=== PATIENT | female | born 1990 | race Caucasian/White ===

== ENCOUNTER 2017-05-04 14:19 | Inpatient (IN) | payer BC ==
--- NOTE | 2017-05-04 15:17 | ED ---
General Adult HPI - General Chief complaint: Psychiatric Symptoms Stated complaint: med check Time Seen by Provider: 05/04/17 14:56 Source: patient, RN notes reviewed, old records reviewed Mode of arrival: ambulatory Limitations: no limitations - History of Present Illness Initial comments: This is a 19-year-old female the ER for evaluation of psychiatric disease, patient has known mental illness. Patient is intoxicated from rubbing alcohol. She messaging event having problem with drinking rubbing alcohol. Patient's family is at bedside, patient is suicidal. Patient states she does not to kill herself, she is having delusions, hearing and seeing things - Related Data Home Medications Medication Instructions Recorded Confirmed Gabapentin [Neurontin] 100 mg PO TID 05/04/17 05/04/17 Lurasidone [Latuda] 40 mg PO W/SUPPER 05/04/17 05/04/17 Methocarbamol [Robaxin] 750 mg PO BID 05/04/17 05/04/17 Metoprolol Tartrate [Lopressor] 12.5 mg PO BID 05/04/17 05/04/17 Venlafaxine HCl [Effexor] 75 mg PO DAILY 05/04/17 05/04/17 traZODone HCL 150 mg PO HS 05/04/17 05/04/17 Divalproex ER [Depakote ER] 500 mg PO BID 05/05/17 05/05/17 Allergies Allergy/AdvReac Type Severity Reaction Status Date / Time clindamycin Allergy Unknown Verified 05/04/17 23:03 Review of Systems ROS Statement: Those systems with pertinent positive or pertinent negative responses have been documented in the HPI. ROS Other: All systems not noted in ROS Statement are negative. Past Medical History Past Medical History: No Reported History Additional Past Medical History / Comment(s): migraines History of Any Multi-Drug Resistant Organisms: None Reported Past Surgical History: No Surgical Hx Reported Past Psychological History: Anxiety, Bipolar, Depression Smoking Status: Current every day smoker Past Alcohol Use History: None Reported Past Drug Use History: None Reported General Exam Limitations: no limitations General appearance: alert, in no apparent distress, appears intoxicated Head exam: Present: atraumatic, normocephalic, normal inspection Eye exam: Present: normal appearance, PERRL, EOMI. Absent: scleral icterus, conjunctival injection, periorbital swelling ENT exam: Present: normal exam, mucous membranes moist Neck exam: Present: normal inspection. Absent: tenderness, meningismus, lymphadenopathy Respiratory exam: Present: normal lung sounds bilaterally. Absent: respiratory distress, wheezes, rales, rhonchi, stridor Cardiovascular Exam: Present: regular rate, normal rhythm, normal heart sounds. Absent: systolic murmur, diastolic murmur, rubs, gallop, clicks GI/Abdominal exam: Present: soft, normal bowel sounds. Absent: distended, tenderness, guarding, rebound, rigid Extremities exam: Present: normal inspection, full ROM, normal capillary refill. Absent: tenderness, pedal edema, joint swelling, calf tenderness Back exam: Present: normal inspection Neurological exam: Present: alert, oriented X3, CN II-XII intact Psychiatric exam: Present: normal affect, normal mood Skin exam: Present: warm, dry, intact, normal color. Absent: rash Course Vital Signs 05/04/17 05/04/17 14:49 18:33 Temperature 97.6 F Pulse Rate 119 H 125 H Respiratory 18 20 Rate Blood Pressure 137/100 151/98 O2 Sat by Pulse 99 99 Oximetry - Reevaluation(s) Reevaluation #1: 05/04/17 16:40 Patient's medically clear for psychiatric evaluation Medical Decision Making - Medical Decision Making 19 female here for evaluation of psychiatric disease, patient will be admitted for psychiatric evaluation and treatment - Lab Data Result diagrams: 05/04/17 18:13 05/06/17 08:42 Lab Results 05/04/17 05/04/17 05/04/17 Range/Units 18:07 18:07 18:07 WBC (3.8-10.6) k/uL RBC (3.80-5.40) m/uL Hgb (11.4-16.0) gm/dL Hct (34.0-46.0) % MCV (80.0-100.0) fL MCH (25.0-35.0) pg MCHC (31.0-37.0) g/dL RDW (11.5-15.5) % Plt Count (150-450) k/uL Neutrophils % % Lymphocytes % % Monocytes % % Eosinophils % % Basophils % % Neutrophils # (1.3-7.7) k/uL Lymphocytes # (1.0-4.8) k/uL Monocytes # (0-1.0) k/uL Eosinophils # (0-0.7) k/uL Basophils # (0-0.2) k/uL Anisocytosis Sodium (137-145) mmol/L Potassium (3.5-5.1) mmol/L Chloride (98-107) mmol/L Carbon Dioxide (22-30) mmol/L Anion Gap mmol/L BUN (7-17) mg/dL Creatinine (0.52-1.04) mg/dL Est GFR (MDRD) Af Amer (>60 ml/min/1.73 sqM) Est GFR (MDRD) Non-Af (>60 ml/min/1.73 sqM) Glucose (74-99) mg/dL Osmolality (280-301) mosm/kg Calcium (8.4-10.2) mg/dL Total Bilirubin (0.2-1.3) mg/dL AST (14-36) U/L ALT (9-52) U/L Alkaline Phosphatase (38-126) U/L Total Protein (6.3-8.2) g/dL Albumin (3.5-5.0) g/dL TSH (0.465-4.680) mIU/L Urine Color Light Yellow Urine Appearance Cloudy H (Clear) Urine pH 7.5 (5.0-8.0) Ur Specific [place] 1.008 (1.001-1.035) Urine Protein Negative (Negative) Urine Glucose (UA) Negative (Negative) Urine Ketones Negative (Negative) Urine Blood Negative (Negative) Urine Nitrite Negative (Negative) Urine Bilirubin Negative (Negative) Urine Urobilinogen <2.0 (<2.0) mg/dL Ur Leukocyte Esterase Large H (Negative) Urine WBC 2 (0-5) /hpf Ur Squamous Epith Cells 6 H (0-4) /hpf Amorphous Sediment Occasional H (None) /hpf Urine Bacteria Rare H (None) /hpf Urine Mucus Rare H (None) /hpf Urine Osmolality 335 (50-1400) mosm/kg Urine HCG, Qual Not Detected (Not Detectd) Salicylates mg/dL Urine Opiates Screen Not Detected (NotDetected) Ur Oxycodone Screen Not Detected (NotDetected) Urine Methadone Screen Not Detected (NotDetected) Ur Propoxyphene Screen Not Detected (NotDetected) Acetaminophen ug/mL Ur Barbiturates Screen Not Detected (NotDetected) U Tricyclic Antidepress Not Detected (NotDetected) Ur Phencyclidine Scrn Not Detected (NotDetected) Ur Amphetamines Screen Not Detected (NotDetected) U Methamphetamines Scrn Not Detected (NotDetected) U Benzodiazepines Scrn Not Detected (NotDetected) Urine Cocaine Screen Not Detected (NotDetected) U Marijuana (THC) Screen Not Detected (NotDetected) Serum Alcohol mg/dL 05/04/17 05/04/17 05/04/17 Range/Units 18:13 18:13 18:13 WBC 6.6 (3.8-10.6) k/uL RBC 4.07 (3.80-5.40) m/uL Hgb 14.0 (11.4-16.0) gm/dL Hct 39.4 (34.0-46.0) % MCV 96.9 (80.0-100.0) fL MCH 34.4 (25.0-35.0) pg MCHC 35.5 (31.0-37.0) g/dL RDW 16.1 H (11.5-15.5) % Plt Count 245 (150-450) k/uL Neutrophils % 57 % Lymphocytes % 31 % Monocytes % 8 % Eosinophils % 1 % Basophils % 1 % Neutrophils # 3.8 (1.3-7.7) k/uL Lymphocytes # 2.1 (1.0-4.8) k/uL Monocytes # 0.5 (0-1.0) k/uL Eosinophils # 0.1 (0-0.7) k/uL Basophils # 0.0 (0-0.2) k/uL Anisocytosis Slight Sodium 145 (137-145) mmol/L Potassium 4.3 (3.5-5.1) mmol/L Chloride 106 (98-107) mmol/L Carbon Dioxide 19 L (22-30) mmol/L Anion Gap 20 mmol/L BUN 13 (7-17) mg/dL Creatinine 0.60 (0.52-1.04) mg/dL Est GFR (MDRD) Af Amer >60 (>60 ml/min/1.73 sqM) Est GFR (MDRD) Non-Af >60 (>60 ml/min/1.73 sqM) Glucose 91 (74-99) mg/dL Osmolality 301 (280-301) mosm/kg Calcium 10.0 (8.4-10.2) mg/dL Total Bilirubin 0.3 (0.2-1.3) mg/dL AST 34 (14-36) U/L ALT 59 H (9-52) U/L Alkaline Phosphatase 80 (38-126) U/L Total Protein 8.2 (6.3-8.2) g/dL Albumin 5.4 H (3.5-5.0) g/dL TSH 1.250 (0.465-4.680) mIU/L Urine Color Urine Appearance (Clear) Urine pH (5.0-8.0) Ur Specific [place] (1.001-1.035) Urine Protein (Negative) Urine Glucose (UA) (Negative) Urine Ketones (Negative) Urine Blood (Negative) Urine Nitrite (Negative) Urine Bilirubin (Negative) Urine Urobilinogen (<2.0) mg/dL Ur Leukocyte Esterase (Negative) Urine WBC (0-5) /hpf Ur Squamous Epith Cells (0-4) /hpf Amorphous Sediment (None) /hpf Urine Bacteria (None) /hpf Urine Mucus (None) /hpf Urine Osmolality (50-1400) mosm/kg Urine HCG, Qual (Not Detectd) Salicylates <1.0 mg/dL Urine Opiates Screen (NotDetected) Ur Oxycodone Screen (NotDetected) Urine Methadone Screen (NotDetected) Ur Propoxyphene Screen (NotDetected) Acetaminophen <10.0 ug/mL Ur Barbiturates Screen (NotDetected) U Tricyclic Antidepress (NotDetected) Ur Phencyclidine Scrn (NotDetected) Ur Amphetamines Screen (NotDetected) U Methamphetamines Scrn (NotDetected) U Benzodiazepines Scrn (NotDetected) Urine Cocaine Screen (NotDetected) U Marijuana (THC) Screen (NotDetected) Serum Alcohol 39 mg/dL Disposition Clinical Impression: Depression, Suicidal ideation Disposition: TRANSFER TO PSYCH HOSP/UNIT Condition: Fair
[2017-05-04 18:23] LABS: Amorphous Sediment,Urine Occasional /hpf; Appearance,Urine Cloudy (Clear); Bacteria,Urine Rare /hpf; Bilirubin,Urine Negative (Negative); Glucose,Urine (UA) Negative (Negative); Ketones,Urine Negative (Negative); Leukocyte Esterase,Urine Large (Negative); Mucus,Urine Rare /hpf; Nitrite,Urine Negative (Negative); PH, Urine 7.5 (5.0-8.0); Particle Count 8096; Protein,Urine Negative (Negative); Specific Gravity,Urine 1.008 (1.001-1.035); Squamous Epithelial Cell,Urine 6 /hpf (0-4); UA Billing (MACRO vs. MICRO) MICRO; Urobilinogen,Urine <2.0 mg/dL (<2.0); WBC,Urine 2 /hpf (0-5)
[2017-05-04 18:29] LABS: Anisocytosis Slight; Basophils % (A) 1 %; CH 33.1; CHCM 34.2; Eosinophils # (A) 0.1 k/uL (0-0.7); Eosinophils % (A) 1 %; HCT 39.4 % (34.0-46.0); HDW 2.58; Luc # (Auto) 0.13; Luc % (Auto) 2; Lymphocytes # (A) 2.1 k/uL (1.0-4.8); Lymphocytes % (A) 31 %; MCH 34.4 pg (25.0-35.0); MCHC 35.5 g/dL (31.0-37.0); MCV 96.9 fL (80.0-100.0); Mean Platelet Volume 7.5; Monocytes # (A) 0.5 k/uL (0-1.0); Monocytes % (A) 8 %; Neutrophils # (A) 3.8 k/uL (1.3-7.7); Neutrophils % (A) 57 %; RBC 4.07 m/uL (3.80-5.40); RDW 16.1 % (11.5-15.5); WBC 6.6 k/uL (3.8-10.6)
[2017-05-04 19:04] LABS: ALT 59 U/L (9-52); AST 34 U/L (14-36); Acetaminophen <10.0 ug/mL; Alcohol 39 mg/dL; Alkaline Phosphatase 80 U/L (38-126); Anion Gap 20 mmol/L; Blood Urea Nitrogen 13 mg/dL (7-17); Carbon Dioxide 19 mmol/L (22-30); Chloride 106 mmol/L (98-107); Glucose 91 mg/dL (74-99); Non-African American GFR(MDRD) >60 (>60 ml/min/1.73 sqM); Potassium 4.3 mmol/L (3.5-5.1); Salicylate <1.0 mg/dL; Sodium 145 mmol/L (137-145); Total Bilirubin 0.3 mg/dL (0.2-1.3); Total Protein 8.2 g/dL (6.3-8.2)
[2017-05-04] MEDS ORDERED: MAGNESIUM HYDROXIDE 2,400 MG/10 ML CUP PO PRN (22:44)
[2017-05-04] MEDS: GABAPENTIN 100 MG CAP PO SCH (23:13)
[2017-05-04] MEDS: traZODone HCL 50 MG TAB PO SCH (23:13)
[2017-05-05 00:37] VITALS: BMI 36.8
[2017-05-05] MEDS: LORazepam 1 MG TAB PO PRN ×2 (05:27→12:17)
[2017-05-05] MEDS: GABAPENTIN 100 MG CAP PO SCH ×3 (07:58→21:13)
[2017-05-05] MEDS: METOPROLOL TARTRATE 12.5 MG TAB PO SCH ×2 (07:58→20:11)
[2017-05-05] MEDS: NICOTINE 14MG/24HR PATCH TRANSDERM SCH (07:58)
[2017-05-05] MEDS: VENLAFAXINE HCL 75 MG TAB PO SCH (07:59)
[2017-05-05] MEDS: MAG HYDROX/AL HYDROX/SIMETH 30 ML CUP PO PRN (08:29)
[2017-05-05] MEDS: METHOCARBAMOL 750 MG TAB PO PRN ×2 (08:29→20:11)
[2017-05-05] MEDS: ACETAMINOPHEN TAB 325 MG TAB PO PRN (09:18)
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
--- NOTE | 2017-05-05 15:50 | P.CONS ---
History of Present Illness - Reason for Consult Consult date: 05/05/17 Medical history and physical in a patient admitted to the psych floor - History of Present Illness This is a 27-year-old female that is admitted to the hospital with acute intoxication with alcohol. Patient was noted to have blood alcohol level 39. Patient apparently was abusing rubbing alcohol Patient denies having any suicidal or homicidal ideation Patient's only complaint is that she has had pain in her right ankle for about 3 -4 months She has apparently rolled her ankle has had an x-ray in the past without any fractures Denies having any headaches blurry vision chest pain difficulty breathing the abdominal pain diarrhea urinary urgency or frequency or extremity edema or any focal weakness Review of Systems All systems: negative (Noted in HPI) Past Medical History Past Medical History: No Reported History Additional Past Medical History / Comment(s): migraines History of Any Multi-Drug Resistant Organisms: None Reported Past Surgical History: No Surgical Hx Reported Smoking Status: Current every day smoker Medications and Allergies Home Medications Medication Instructions Recorded Confirmed Type Gabapentin [Neurontin] 100 mg PO TID 05/04/17 05/04/17 History Lurasidone [Latuda] 40 mg PO W/SUPPER 05/04/17 05/04/17 History Methocarbamol [Robaxin] 750 mg PO BID 05/04/17 05/04/17 History Metoprolol Tartrate [Lopressor] 12.5 mg PO BID 05/04/17 05/04/17 History Venlafaxine HCl [Effexor] 75 mg PO DAILY 05/04/17 05/04/17 History traZODone HCL 150 mg PO HS 05/04/17 05/04/17 History Divalproex ER [Depakote ER] 500 mg PO BID 05/05/17 05/05/17 History Allergies Allergy/AdvReac Type Severity Reaction Status Date / Time clindamycin Allergy Unknown Verified 05/04/17 23:03 Physical Exam Vitals: Vital Signs Temp Pulse Pulse Pulse Resp BP BP 05/05/17 08:01 120 H 18 05/05/17 06:09 97.6 F 113 H 18 05/04/17 23:14 97.4 F L 56 L 16 140/110 05/04/17 18:33 125 H 20 151/98 BP Pulse Ox 05/05/17 08:01 138/94 05/05/17 06:09 131/93 05/04/17 23:14 05/04/17 18:33 99 Intake and Output 05/05/17 05/05/17 05/05/17 06:59 14:59 22:59 Other: Weight 113.14 kg Physical exam Gen. appearance oriented 3 in no distress Neck is supple no JVD Lungs good air entry clear to auscultation no rhonchi or wheezing Heart S1-S2 heard regular rate and rhythm no murmurs appreciated Abdomen is soft nontender no organomegaly bowel sounds are intact Neurologically cranial nerves II-12 grossly intact no focal motor or sensory deficits noted Skin no abnormalities appreciated Ankle is able to perform good range of motion is able to tolerate weight no significant edema noted Results CBC & Chem 7: 05/04/17 18:13 05/04/17 18:13 Labs: Abnormal Lab Results - Last 24 Hours (Table) 05/04/17 05/04/17 05/04/17 Range/Units 18:07 18:13 18:13 RDW 16.1 H (11.5-15.5) % Carbon Dioxide 19 L (22-30) mmol/L ALT 59 H (9-52) U/L Albumin 5.4 H (3.5-5.0) g/dL Urine Appearance Cloudy H (Clear) Ur Leukocyte Esterase Large H (Negative) Ur Squamous Epith Cells 6 H (0-4) /hpf Amorphous Sediment Occasional H (None) /hpf Urine Bacteria Rare H (None) /hpf Urine Mucus Rare H (None) /hpf Assessment and Plan Plan: #1 acute alcohol intoxication Bipolar depression #3 non-anion gap metabolic acidosis #4 tobacco use Plan Continue treatment per you. The only recommendation is to repeat a Chem-7 tomorrow to ensure stability of renal function Patient did use rubbing alcohol which is noted to cause renal dysfunction However clinically patient appears stable In regards to the ankle with [place] ankle rules there is no need for any radiologic evaluation No further recommendations please call with any questions or concerns
[2017-05-05] MEDS: IBUPROFEN 400 MG TAB PO PRN (16:26)
[2017-05-05] MEDS ORDERED: LURASIDONE 40 MG TAB PO SCH (17:30)
[2017-05-05] MEDS: LURASIDONE 40 MG TAB PO SCH (17:39)
[2017-05-05] MEDS: DICLOFENAC SODIUM GEL 100 GM TUBE TOPICAL SCH ×2 (17:40→21:13)
[2017-05-05] MEDS: traZODone HCL 50 MG TAB PO SCH (21:13)
[2017-05-06] MEDS: ACETAMINOPHEN TAB 325 MG TAB PO PRN (05:29)
[2017-05-06] MEDS: LORazepam 1 MG TAB PO PRN ×2 (05:54→12:57)
[2017-05-06] MEDS: METOPROLOL TARTRATE 12.5 MG TAB PO SCH ×2 (08:33→21:00)
[2017-05-06] MEDS: VENLAFAXINE HCL 75 MG TAB PO SCH (08:34)
[2017-05-06] MEDS: GABAPENTIN 100 MG CAP PO SCH ×3 (08:36→21:00)
[2017-05-06] MEDS: NICOTINE 14MG/24HR PATCH TRANSDERM SCH (08:36)
[2017-05-06] MEDS: IBUPROFEN 400 MG TAB PO PRN ×3 (08:37→21:02)
[2017-05-06] MEDS: DICLOFENAC SODIUM GEL 100 GM TUBE TOPICAL SCH ×4 (08:38→21:00)
[2017-05-06 09:13] LABS: ALT 51 U/L (9-52); AST 33 U/L (14-36); Alkaline Phosphatase 72 U/L (38-126); Anion Gap 17 mmol/L; Blood Urea Nitrogen 14 mg/dL (7-17); Calcium 9.1 mg/dL (8.4-10.2); Carbon Dioxide 19 mmol/L (22-30); Chloride 101 mmol/L (98-107); Glucose 189 mg/dL (74-99); Non-African American GFR(MDRD) >60 (>60 ml/min/1.73 sqM); Potassium 4.3 mmol/L (3.5-5.1); Sodium 137 mmol/L (137-145); Total Bilirubin 0.4 mg/dL (0.2-1.3); Total Protein 8.1 g/dL (6.3-8.2)
[2017-05-06] MEDS: METHOCARBAMOL 750 MG TAB PO PRN ×2 (09:26→19:35)
--- NOTE | 2017-05-06 13:39 | P.PN ---
Progress Note - Text Interval History: Patient is a 27-year-old female who is admitted with suicidal ideation and attempt drinking a quarter of a bottle of rubbing alcohol and tying a charging cord around her neck and her grandmother stopped her and she was brought to the emergency room and signed in voluntarily. Patient is seen today and she reports that she continues to feel anxious, talking to herself to calm down. She states that she heard voices last evening that were mostly mumbling noises and could not understand what they were saying. She states that she feels depressed and her thinking is not clear. She denies any visual hallucinations. She states that she repeatedly counts to 10 and this began over a month ago. She does not endorse any other obsessive-compulsive symptoms. Patient denies any suicidal ideation currently but doesn't feel comfortable. She reports feeling anxious and "all worked up". Patient reported no complaints of side effects from the medication. Mental Status: Appearance/Attitude: Patient is appropriately dressed and she was cooperative throughout the interview Behavior: Patient did not exhibit any psychomotor agitation or retardation, at times patient was observed to be rocking and repeating "calm down" to herself Speech/Language: Patient's speech was spontaneous and of normal volume and rhythm. Thought Process: Patient was goal-directed and did not exhibit any circumstantial or tangential process. Thought Content: Patient reports that she heard voices last night and mumbling noise, denied any current visual hallucinations. She denied any paranoid ideation and no delusions were elicited. She denied any symptoms of thought insertion or thought broadcasting. Suicidal/Homicidal Ideation: She denies any current suicidal ideation or homicidal ideation. Sensorium/Cognition: She was alert and oriented to person place and time and her memory was grossly intact. Mood/Affect: Ports her mood is still depressed, anxious and that she doesn't feel comfortable. Her affect was slightly blunted. Insight/Judgement: He isn't insight and judgment are fair. Assessment: Patient continues to report feeling anxious and uncomfortable, hearing voices and repeating to herself calm down. She states that her thinking is still not that clear and she is feeling depressed. She also complains of counting to 10 repeatedly and this is just begun in the last month. Patient reports no side effects from the increase in her what to do to a total dose of 60 mg. Patient has been attending groups. Patient had an elevated ALT and admission which is decreased from 59-51 on repeat. Her UDS was negative on admission her alcohol level was 39. Her test was negative and her other laboratory studies were within normal limits. Plan: She will continue on Latuda 60mg at dinnertime to target her mood, trazodone 150 mg at bedtime to target her sleep and Effexor 75 mg in the morning to target her depression. Patient will remain in the hospital due to her psychotic symptoms, depressed mood. He'll be encouraged to attend groups and participate.
[2017-05-06] MEDS: LURASIDONE 40 MG TAB PO SCH (17:44)
[2017-05-06] MEDS: traZODone HCL 50 MG TAB PO SCH (21:00)
[2017-05-07] MEDS: IBUPROFEN 400 MG TAB PO PRN ×3 (06:08→16:31)
[2017-05-07] MEDS: VENLAFAXINE HCL 75 MG TAB PO SCH (08:37)
[2017-05-07] MEDS: NICOTINE 14MG/24HR PATCH TRANSDERM SCH (08:37)
[2017-05-07] MEDS: METOPROLOL TARTRATE 12.5 MG TAB PO SCH ×2 (08:38→21:19)
[2017-05-07] MEDS: DICLOFENAC SODIUM GEL 100 GM TUBE TOPICAL SCH ×4 (08:38→22:36)
[2017-05-07] MEDS: GABAPENTIN 100 MG CAP PO SCH ×3 (08:39→20:55)
[2017-05-07] MEDS: ACETAMINOPHEN TAB 325 MG TAB PO PRN (08:41)
[2017-05-07] MEDS ORDERED: VENLAFAXINE HCL ER 75 MG CAP PO STA (08:58)
[2017-05-07] MEDS: METHOCARBAMOL 750 MG TAB PO PRN ×2 (09:18→21:20)
[2017-05-07] MEDS: LORazepam 1 MG TAB PO PRN ×2 (11:14→19:16)
--- NOTE | 2017-05-07 12:19 | P.PN ---
Progress Note - Text Interval History: Patient is a 27-year-old female who is admitted after making a suicide attempt by drinking rubbing alcohol and tying a charging cord around her neck. I spoke with the patient this morning and she reported feeling ashamed about her suicide attempt. She states that her thinking is much clearer , she reports continuing to feel anxious and scared and when discussing this identified her divorce is the source of her anxiety. She states that she did not want to be and would like to be with her ex-. She states when she does get anxious she begins to repeat phrases such as "calm down". She reports feeling broken and continues to feel depressed. She states that the auditory hallucinations are much less frequent and not as intense as they were on admission. She reports that she slept well and has been eating well. She had no complaints of side effects from the medication. Mental Status: Appearance/Attitude: Patient was neatly dressed and was cooperative throughout the interview. Behavior: Patient was much less anxious than yesterday, did not rock or repeat phrases during today's interview and there is no evidence of any psychomotor agitation or retardation. Speech/Language: Patient's speech was spontaneous and was of normal volume and rhythm. Thought Process: Patient was goal-directed in her responses, no evidence of any tangential or circumstantial thought. Thought Content: Patient reported that her auditory hallucinations are less frequent and less intense and not as disturbing to her, she denied any visual hallucinations. No delusions or paranoid ideation were elicited. The patient verbalized that she felt her thinking was clear today that she remains scared and anxious due to the divorce and wanting to be with her ex-. She states it is those times that she repeats phrases to herself. She reports continuing to feel depressed and broken. Suicidal/Homicidal Ideation: Patient denied any current suicidal or homicidal ideation stating that she was ashamed about the attempt that she made prior to admission. Sensorium/Cognition: Patient was alert and oriented to person, place, and time and her memory was grossly intact. Mood/Affect: Patient's mood remains depressed and anxious and her affect was blunted. Insight/Judgement: Patient's insight and judgment are fair. Assessment: Patient appeared clearer today, less anxious and reports that she is thinking clear but remains depressed and anxious and continues to repeat phrases to herself when she is feeling anxious. She reports feeling ashamed about her suicide attempt prior to admission and states she feels broken and depressed. She has been attending groups and reported no side effects from her medication. Plan: Patient will continue on Latuda 60 mg daily to stabilize her mood, target her psychotic symptoms and trazodone 150 mg at bedtime to target her sleep. I discussed with the patient increasing her Effexor to 150 mg extended release in the morning to target her anxiety and depression. Patient was agreeable with the increase and we reviewed the use and side effects of the medication. Patient was encouraged to continue attending groups and activities. Patient continues to require hospitalization due to continued psychotic symptoms and to stabilize her mood prior to discharge.
[2017-05-07] MEDS: LURASIDONE 40 MG TAB PO SCH (16:32)
[2017-05-07] MEDS: traZODone HCL 50 MG TAB PO SCH (20:57)
[2017-05-07] MEDS: MAG HYDROX/AL HYDROX/SIMETH 30 ML CUP PO PRN (22:58)
[2017-05-08] MEDS: IBUPROFEN 400 MG TAB PO PRN ×2 (04:55→08:36)
[2017-05-08] MEDS: LORazepam 1 MG TAB PO PRN (05:02)
[2017-05-08 05:38] VITALS: RESP 18; TEMP 98.2
[2017-05-08] MEDS: METHOCARBAMOL 750 MG TAB PO PRN (08:35)
[2017-05-08] MEDS: METOPROLOL TARTRATE 12.5 MG TAB PO SCH (08:35)
[2017-05-08] MEDS: NICOTINE 14MG/24HR PATCH TRANSDERM SCH (08:38)
[2017-05-08] MEDS: GABAPENTIN 100 MG CAP PO SCH (08:38)
[2017-05-08] MEDS: DICLOFENAC SODIUM GEL 100 GM TUBE TOPICAL SCH ×2 (08:39→12:46)
[2017-05-08 08:44] VITALS: BP 140/75; PULSE 124
[2017-05-08] MEDS ORDERED: hydrOXYzine PAMOATE 25 MG CAP PO PRN (08:54)
[2017-05-08] MEDS ORDERED: VENLAFAXINE HCL ER 150 MG CAP PO SCH (09:00)
--- NOTE | 2017-05-08 12:53 | P.DS ---
Providers Date of admission: 05/04/17 21:16 Expected date of discharge: 05/08/17 Attending physician: Maiad Crow MD Consults: 05/04/17 22:44 Consult Physician Routine Consulting Provider: Yair Lindsey Consult Reason/Comments: medical management Do you want consulting provider notified?: Yes, Notify in am Primary care physician: Randy [facility] Course: Discharge Diagnoses: Major depression, recurrent severe with psychotic symptoms Reason for Admission: Patient is a 27-year-old female who is admitted due to attempting suicide by drinking a quarter of a bottle of rubbing alcohol and wrapping a charging cord around her neck. Her grandparents found her and brought her to the hospital. She states that she had been feeling overwhelmed and depressed due to her divorce. She also reported that she was hearing voices and at times having visual hallucinations. She also described feeling increasingly anxious and needing to repeat phrases over and over to herself to calm herself down. She was recently hospitalized and discharged about a month ago and had been started on Depakote and Latuda at that time but saw little benefit. She has been followed up as an outpatient since that discharge. Hospital Course: Patient was admitted on a voluntary basis and was ordered group and activity therapy. Patient's medications were adjusted and her Latuda was initially increased to 60 mg a day and her Depakote was discontinued due to lack of effect. She was continued on trazodone at bedtime as well as Effexor. She was continued on her Robaxin, Lopressor and Gabapentin. Patient reported while in the hospital that she was no longer having any suicidal ideation, no longer hearing voices or seeing things. She reported continuing to feel anxious and needing to calm herself by repeating phrases over and over again. Patient was attending and participating in groups and activities and found them beneficial. She reported continued feeling depressed about her divorce and so her Effexor was increased to 150 mg a day. Patient then reported that she was feeling less anxious and less depressed and was feeling more in control. She had been using ativan prn for anxiety in hospital and she was changed to vistaril 25mg tid prn for anxiety. She denied any further auditory or visual hallucinations. Patient stated that she was feeling positive and ready for discharge. Laboratory Last Values WBC 6.6 k/uL (3.8-10.6) 05/04/17 18:13 RBC 4.07 m/uL (3.80-5.40) 05/04/17 18:13 Hgb 14.0 gm/dL (11.4-16.0) 05/04/17 18:13 Hct 39.4 % (34.0-46.0) 05/04/17 18:13 MCV 96.9 fL (80.0-100.0) 05/04/17 18:13 MCH 34.4 pg (25.0-35.0) 05/04/17 18:13 MCHC 35.5 g/dL (31.0-37.0) 05/04/17 18:13 RDW 16.1 % (11.5-15.5) H 05/04/17 18:13 Plt Count 245 k/uL (150-450) 05/04/17 18:13 Neutrophils % 57 % 05/04/17 18:13 Lymphocytes % 31 % 05/04/17 18:13 Monocytes % 8 % 05/04/17 18:13 Eosinophils % 1 % 05/04/17 18:13 Basophils % 1 % 05/04/17 18:13 Neutrophils # 3.8 k/uL (1.3-7.7) 05/04/17 18:13 Lymphocytes # 2.1 k/uL (1.0-4.8) 05/04/17 18:13 Monocytes # 0.5 k/uL (0-1.0) 05/04/17 18:13 Eosinophils # 0.1 k/uL (0-0.7) 05/04/17 18:13 Basophils # 0.0 k/uL (0-0.2) 05/04/17 18:13 Anisocytosis Slight 05/04/17 18:13 Sodium 137 mmol/L (137-145) 05/06/17 08:42 Potassium 4.3 mmol/L (3.5-5.1) 05/06/17 08:42 Chloride 101 mmol/L (98-107) 05/06/17 08:42 Carbon Dioxide 19 mmol/L (22-30) L 05/06/17 08:42 Anion Gap 17 mmol/L 05/06/17 08:42 BUN 14 mg/dL (7-17) 05/06/17 08:42 Creatinine 0.75 mg/dL (0.52-1.04) 05/06/17 08:42 Est GFR (MDRD) Af Amer >60 (>60 ml/min/1.73 sqM) 05/06/17 08:42 Est GFR (MDRD) Non-Af >60 (>60 ml/min/1.73 sqM) 05/06/17 08:42 Glucose 189 mg/dL (74-99) H 05/06/17 08:42 Osmolality 301 mosm/kg (280-301) 05/04/17 18:13 Calcium 9.1 mg/dL (8.4-10.2) 05/06/17 08:42 Total Bilirubin 0.4 mg/dL (0.2-1.3) 05/06/17 08:42 AST 33 U/L (14-36) 05/06/17 08:42 ALT 51 U/L (9-52) 05/06/17 08:42 Alkaline Phosphatase 72 U/L (38-126) 05/06/17 08:42 Total Protein 8.1 g/dL (6.3-8.2) 05/06/17 08:42 Albumin 5.2 g/dL (3.5-5.0) H 05/06/17 08:42 TSH 1.250 mIU/L (0.465-4.680) 05/04/17 18:13 Urine Color Light Yellow 05/04/17 18:07 Urine Appearance Cloudy (Clear) H 05/04/17 18:07 Urine pH 7.5 (5.0-8.0) 05/04/17 18:07 Ur Specific [place] 1.008 (1.001-1.035) 05/04/17 18:07 Urine Protein Negative (Negative) 05/04/17 18:07 Urine Glucose (UA) Negative (Negative) 05/04/17 18:07 Urine Ketones Negative (Negative) 05/04/17 18:07 Urine Blood Negative (Negative) 05/04/17 18:07 Urine Nitrite Negative (Negative) 05/04/17 18:07 Urine Bilirubin Negative (Negative) 05/04/17 18:07 Urine Urobilinogen <2.0 mg/dL (<2.0) 05/04/17 18:07 Ur Leukocyte Esterase Large (Negative) H 05/04/17 18:07 Urine WBC 2 /hpf (0-5) 05/04/17 18:07 Ur Squamous Epith Cells 6 /hpf (0-4) H 05/04/17 18:07 Amorphous Sediment Occasional /hpf (None) H 05/04/17 18:07 Urine Bacteria Rare /hpf (None) H 05/04/17 18:07 Urine Mucus Rare /hpf (None) H 05/04/17 18:07 Urine Osmolality 335 mosm/kg (50-1400) 05/04/17 18:07 Urine HCG, Qual Not Detected (Not Detectd) 05/04/17 18:07 Salicylates <1.0 mg/dL 05/04/17 18:13 Urine Opiates Screen Not Detected (NotDetected) 05/04/17 18:07 Ur Oxycodone Screen Not Detected (NotDetected) 05/04/17 18:07 Urine Methadone Screen Not Detected (NotDetected) 05/04/17 18:07 Ur Propoxyphene Screen Not Detected (NotDetected) 05/04/17 18:07 Acetaminophen <10.0 ug/mL 05/04/17 18:13 Ur Barbiturates Screen Not Detected (NotDetected) 05/04/17 18:07 U Tricyclic Antidepress Not Detected (NotDetected) 05/04/17 18:07 Ur Phencyclidine Scrn Not Detected (NotDetected) 05/04/17 18:07 Ur Amphetamines Screen Not Detected (NotDetected) 05/04/17 18:07 U Methamphetamines Scrn Not Detected (NotDetected) 05/04/17 18:07 U Benzodiazepines Scrn Not Detected (NotDetected) 05/04/17 18:07 Urine Cocaine Screen Not Detected (NotDetected) 05/04/17 18:07 U Marijuana (THC) Screen Not Detected (NotDetected) 05/04/17 18:07 Serum Alcohol 39 mg/dL 05/04/17 18:13 Discharge Mental Status:Appearance/Attitude: Patient was neatly and appropriately dressed and she was cooperative. Behavior: She did not exhibit any psychomotor agitation or retardation, was not rocking or repeating phrases to her self during the interview. Speech/Language: Patient's speech was spontaneous and of normal volume and rhythm. Thought Process: Patient's thoughts were goal directed, she exhibited no circumstantial or tangential thought. Thought Content: Patient denied any auditory or visual hallucinations and denied any paranoid ideation and no delusional ideation was elicited. Patient stated that she felt more in control and reported that she had been coming to terms with her divorce and had written her ex- a letter. She reported that she was sleeping and eating well. She stated that she was no longer feeling overwhelmed or hopeless. Suicidal/Homicidal Ideation: She denied any current suicidal or homicidal ideation. Sensorium/Cognition: Patient was alert and oriented to person, place, and time and her memory is grossly intact. Intellectual Functioning: Patient's intellectual functioning appears average. Mood/Affect: Patient's mood was more upbeat and positive and she denied feeling depressed and her affect was appropriate. Insight/Judgement: Patient's insight and judgment are fair. Risk Assessment: Patient's risk for further self-harm is low she continues to be compliant with treatment and avoid any alcohol or drugs. Discharge Plan: Patient will be discharged to return to live with her grandmother, she will continue to follow-up at [facility] and has an appointment on May 12 with her psychiatrist and therapist. Patient will continue on Effexor 150 mg extended release every morning, Desyrel 150 mg at bedtime and Latuda 60 mg with supper and Vistaril 25mg tid prn for anxiety. Patient will continue on her prior medications of Robaxin, Lopressor and gabapentin. Patient will follow-up with her primary care physician as needed. Patient was encouraged to continue her outpatient treatment and be compliant with her medications and avoid any alcohol or drugs. Patient was given prescriptions for Effexor 150mg XR qam, Latuda 60mg with dinner and Vistaril 25mg TID prn for anxiety and stated she had sufficient trazodone, robaxin, lopressor and gabapentin at home and so was not given prescriptions for these. Patient Condition at Discharge: Stable Plan - Discharge Summary New Discharge Prescriptions: New hydrOXYzine PAMOATE [Vistaril] 25 mg PO Q8HR PRN #14 cap PRN Reason: Anxiety Lurasidone [Latuda] 60 mg PO DAILY@1700 #20 tab Venlafaxine HCl ER [Effexor XR] 150 mg PO DAILY #14 cap Continue Gabapentin [Neurontin] 100 mg PO TID traZODone HCL 150 mg PO HS Metoprolol Tartrate [Lopressor] 12.5 mg PO BID Methocarbamol [Robaxin] 750 mg PO BID Discontinued Venlafaxine HCl [Effexor] 75 mg PO DAILY Lurasidone [Latuda] 40 mg PO W/SUPPER Divalproex ER [Depakote ER] 500 mg PO BID Discharge Medication List Gabapentin [Neurontin] 100 mg PO TID 05/04/17 [History] Methocarbamol [Robaxin] 750 mg PO BID 05/04/17 [History] Metoprolol Tartrate [Lopressor] 12.5 mg PO BID 05/04/17 [History] traZODone HCL 150 mg PO HS 05/04/17 [History] Lurasidone [Latuda] 60 mg PO DAILY@1700 #20 tab 05/08/17 [Rx] Venlafaxine HCl ER [Effexor XR] 150 mg PO DAILY #14 cap 05/08/17 [Rx] hydrOXYzine PAMOATE [Vistaril] 25 mg PO Q8HR PRN #14 cap 05/08/17 [Rx] Follow up Appointment(s)/Referral(s): [facility] [Outside] - 05/09/17 3:00 pm (05/09 @ 15:00 with Elizabeth 05/13 @ 17:30 teodora Gandhi) Randy Mendoza MD [Primary Care Provider] - 1-2 days Discharge Disposition: HOME SELF-CARE
== END 2017-05-08 14:17 | disposition home or self-care (01) | DRG 885 ==
LOC: EC 14:19 → 3MHU 21:16
PROVIDERS: ADMIT Psychiatry & Neurology Psychiatry; ATTEND Psychiatry & Neurology Psychiatry
DX: F33.3 Major depressive disorder, recurrent, severe with psychotic symptoms (principal); E87.2 Acidosis; R45.851 Suicidal ideations; E66.01 Morbid (severe) obesity due to excess calories; F41.9 Anxiety disorder, unspecified; F17.200 Nicotine dependence, unspecified, uncomplicated; G43.909 Migraine, unspecified, not intractable, without status migrainosus; M25.571 Pain in right ankle and joints of right foot; F10.129 Alcohol abuse with intoxication, unspecified; T51.2X2A Toxic effect of 2-Propanol, intentional self-harm, initial encounter; Z79.899 Other long term (current) drug therapy; Z88.1 Allergy status to other antibiotic agents; Y90.1 Blood alcohol level of 20-39 mg/100 ml; Y92.9 Unspecified place or not applicable
CPT/HCPCS: 36415; 80053; 80306; 80320; 81001; 81025; 83520; 83930; 83935; 84443; 85025; 99285

== ENCOUNTER 2017-06-22 16:00 | Inpatient (IN) | payer BC ==
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
[2017-06-22] MEDS ORDERED: SODIUM CHLORIDE 0.9% 1,000 ML with MVI, ADULT NO.4 WITH VIT K 10 ML, THIAMINE 100 MG, F... IV ONE ×4 (18:30)
[2017-06-22 18:33] LABS: Glucose,Whole Blood 109 mg/dL (75-99)
[2017-06-22 18:41] LABS: VBG PH 7.44 (7.31-7.41)
[2017-06-22 18:47] LABS: Basophils # (A) 0.1 k/uL (0-0.2); Basophils % (A) 1 %; CH 31.9; CHCM 34.7; Eosinophils # (A) 0.1 k/uL (0-0.7); Eosinophils % (A) 1 %; HDW 2.44; HGB 14.1 gm/dL (11.4-16.0); Luc % (Auto) 3; Lymphocytes # (A) 3.5 k/uL (1.0-4.8); Lymphocytes % (A) 47 %; MCH 31.8 pg (25.0-35.0); MCHC 34.5 g/dL (31.0-37.0); MCV 92.1 fL (80.0-100.0); Mean Platelet Volume 7.1; Monocytes # (A) 0.4 k/uL (0-1.0); Monocytes % (A) 6 %; Neutrophils # (A) 3.2 k/uL (1.3-7.7); Neutrophils % (A) 43 %; RBC 4.45 m/uL (3.80-5.40); RDW 15.1 % (11.5-15.5); WBC 7.4 k/uL (3.8-10.6); WBC (Perox) 7.34
[2017-06-22 18:50] LABS: ALT 167 U/L (9-52); AST 103 U/L (14-36); Acetaminophen <10.0 ug/mL; Alkaline Phosphatase 115 U/L (38-126); Anion Gap 18 mmol/L; Blood Urea Nitrogen 13 mg/dL (7-17); Carbon Dioxide 17 mmol/L (22-30); Chloride 106 mmol/L (98-107); Glucose 108 mg/dL (74-99); Non-African American GFR(MDRD) >60 (>60 ml/min/1.73 sqM); Potassium 4.2 mmol/L (3.5-5.1); Salicylate <1.0 mg/dL; Sodium 141 mmol/L (137-145); Total Bilirubin 0.4 mg/dL (0.2-1.3); Total Protein 7.6 g/dL (6.3-8.2)
[2017-06-22 19:06] LABS: Alcohol 127 mg/dL
[2017-06-22] MEDS ORDERED: NALOXONE 0.4 MG/ML 1 ML VIAL IV PRN (19:42)
[2017-06-22] MEDS ORDERED: THIAMINE 100 MG/ML 2 ML VIAL IM STA (19:45)
[2017-06-22] MEDS ORDERED: LORazepam 2 MG/ML SYRINGE IV PRN ×2 (19:45)
[2017-06-22] MEDS: THIAMINE 100 MG TAB PO SCH (21:40)
[2017-06-22 23:25] VITALS: BMI 36.8
[2017-06-22] MEDS: LORazepam 2 MG/ML SYRINGE IV PRN (23:34)
[2017-06-22] MEDS: ENOXAPARIN 40 MG/0.4 ML SYRINGE SQ SCH (23:38)
[2017-06-23] MEDS: LACTATED RINGERS 1,000 ML IV SCH ×4 (00:42→15:41)
[2017-06-23] MEDS: 1: MVI, ADULT NO.4 WITH VIT K 10 ML, THIAMINE 100 MG, FOLIC ACID 1 MG in SODIUM CHLORIDE IV SCH ×8 (06:18→15:40)
[2017-06-23] MEDS: LORazepam 2 MG/ML SYRINGE IV PRN (06:19)
[2017-06-23 07:30] LABS: Basophils % (A) 1 %; CH 31.4; CHCM 33.9; Eosinophils # (A) 0.2 k/uL (0-0.7); Eosinophils % (A) 2 %; HCT 37.4 % (34.0-46.0); HDW 2.42; HGB 12.7 gm/dL (11.4-16.0); Luc # (Auto) 0.13; Luc % (Auto) 2; Lymphocytes # (A) 1.9 k/uL (1.0-4.8); Lymphocytes % (A) 28 %; MCH 31.5 pg (25.0-35.0); MCV 92.7 fL (80.0-100.0); Mean Platelet Volume 7.1; Monocytes # (A) 0.4 k/uL (0-1.0); Monocytes % (A) 6 %; Neutrophils # (A) 4.3 k/uL (1.3-7.7); Neutrophils % (A) 61 %; RBC 4.03 m/uL (3.80-5.40); RDW 14.8 % (11.5-15.5); WBC (Perox) 7.27
[2017-06-23 07:50] VITALS: RESP 16
[2017-06-23 07:53] LABS: ALT 124 U/L (9-52); AST 64 U/L (14-36); Alkaline Phosphatase 91 U/L (38-126); Anion Gap 14 mmol/L; Blood Urea Nitrogen 10 mg/dL (7-17); Calcium 8.5 mg/dL (8.4-10.2); Carbon Dioxide 18 mmol/L (22-30); Chloride 108 mmol/L (98-107); Glucose 98 mg/dL (74-99); Magnesium 1.6 mg/dL (1.6-2.3); Non-African American GFR(MDRD) >60 (>60 ml/min/1.73 sqM); Potassium 3.7 mmol/L (3.5-5.1); Sodium 140 mmol/L (137-145); Total Bilirubin 0.6 mg/dL (0.2-1.3); Total Protein 6.9 g/dL (6.3-8.2)
[2017-06-23] MEDS: THIAMINE 100 MG TAB PO SCH ×2 (08:03→15:41)
[2017-06-23] MEDS: NICOTINE 21MG/24HR PATCH TRANSDERM SCH (08:03)
[2017-06-23] MEDS: ENOXAPARIN 40 MG/0.4 ML SYRINGE SQ SCH (08:03)
[2017-06-23] MEDS ORDERED: NON-FORMULARY DRUG (Desvenlafaxine Succinate [Pristiq] 25 MG) PO SCH (09:00)
[2017-06-23] MEDS: METHOCARBAMOL 750 MG TAB PO SCH ×2 (09:12→20:18)
[2017-06-23] MEDS: GABAPENTIN 100 MG CAP PO SCH ×3 (09:12→21:01)
[2017-06-23] MEDS: DIVALPROEX 500 MG TABLET.DR PO SCH (09:12)
--- NOTE | 2017-06-23 10:42 | HP ---
HISTORY AND PHYSICAL DATE OF ADMISSION: June 22, 2017. PRESENTING COMPLAINT: Rubbing alcohol overdose. HISTORY OF PRESENTING COMPLAINT: This is a 27-year-old patient of Dr. Mendoza. Recently completed divorce, lives with her mother and grandparents. Patient had alcohol problem. Used to drink vodka before, has gone down to [place]. Now she has been drinking rubbing alcohol and some hand customer training specialist. Mother petitioned the patient that patient has been getting wild at times. Came to the ER. Presented to the ER. The patient is somewhat lethargic, can only give a little bit of a history, somewhat restless in bed, moving about though pleasant. REVIEW OF SYSTEMS: CONSTITUTIONAL: Tired. HEENT: None. RESPIRATORY: None. CARDIOVASCULAR: None. GASTROINTESTINAL: None. GENITOURINARY: None. MUSCULOSKELETAL: None. DERMATOLOGIC: None. HEMATOLOGIC: None. LYMPHATIC: None. PSYCHIATRY: Depressed, suicidal. NEUROLOGICAL: Restless, moving all 4 limbs. PAST MEDICAL HISTORY: Migraines and bipolar disorder. SOCIAL HISTORY: She is with 2 children ages 5 and 7 who lives with their father. Patient smokes about a pack a day. Drinking alcohol. Also had opiate addiction in the past. Currently drinking rubbing alcohol and some hand customer training specialist. FAMILY HISTORY: Patient cannot tell, but was reviewed. HOME MEDICATIONS: 1. Trazodone 150 mg p.o. q.h.s. 2. Seroquel 200 mg p.o. q.h.s. 3. Baclofen 50 p.o. b.i.d. 4. Latuda 60 mg p.o. daily. 5. Neurontin 200 mg p.o. b.i.d. 6. Depakote 500 mg p.o. daily and 100 mg q.h.s. 7. Pristiq ER 25 mg a day. ALLERGIES: CLINDAMYCIN. EXAMINATION: Vital signs on presentation: Temperature 98.6, pulse 132, respirations 20, blood pressure 100/43, pulse ox 98% on room air. GENERAL APPEARANCE: Well built, BMI 36.8, lying in bed, somewhat restless. EYES: Pupils equal. Conjunctivae normal. HEENT: Oral cavity normal. NECK: JVD not raised. Mass not palpable. RESPIRATORY: Effort normal. Lungs are fair air entry. CARDIOVASCULAR: First and second sounds normal. No edema. ABDOMEN: Has got stria, soft, nontender. Liver and spleen not palpable. LYMPHATIC: No lymph nodes palpable in the right or axillae. PSYCHIATRY: Patient is slow but able to speak words, not really able to give a proper history. NEUROLOGICAL: Pupils equal. No facial asymmetry. Moving all 4 limbs. INVESTIGATIONS: White count 7.4, hemoglobin 14.1, venous blood gas showed pH of 7.44, pCO2 30, potassium 4.2, carbon dioxide 17, BUN 13, creatinine 0.80, serum osmolality 327, AST 103, ALT 167, serum alcohol 127. ASSESSMENT: 1. Acute rubbing alcohol could be methyl alcohol overdose causing acute metabolic encephalopathy. 2. Elevated serum osmolality. 3. Alcoholic hepatitis. 4. Chronic alcohol dependence. 5. Metabolic acidosis, probably a mixed picture with pH showing 7.44 with a bicarb of 17. 6. Obesity BMI 36.8. 7. Chronic nicotine dependence. The patient is a smoker. PLAN: We will put the patient on lactated Ringer's 125 mL an hour. Also add bicarb, 1 amp of bicarb to each bag. Neuro checks in place. Will consult nephrology. Will watch for DTs. Psychiatry was also consulted. Will also get a sitter. Give nicotine patch. Copy to Dr. Mendoza. MMBIENVENIDOL / IJN: [id number] /
[2017-06-23] MEDS: ONDANSETRON 4 MG/2 ML VIAL IVP PRN ×2 (10:44→20:16)
--- NOTE | 2017-06-23 14:42 | CONS ---
CONSULTATION REASON FOR CONSULT: Poisoning with ingestion of rubbing alcohol/hand corporate representative. DATE OF CONSULTATION: 06/23/2017. HISTORY OF PRESENT ILLNESS: Patient is a 27-year-old female who was admitted to the hospital with history of ingestion of rubbing alcohol last night. She does have a history of alcohol abuse and drinks vodka. The patient felt that it was cheaper and therefore she resorted to this. There has been no prior history of suicidal ideation. Isopropyl alcohol was sent out. It is currently pending. The patient says serum creatinine was 0.8 mg/dL. She has mild metabolic acidosis anion gap. Serum osmolality was at 327 with an osmolar gap of 35. In the urine, there was no ketones. Serum acetaminophen level was less than 10 mL. Serum alcohol level was at 127. Salicylates less than 1. PAST MEDICAL HISTORY: Significant for ETOH abuse. Patient also has opiate addiction history. She has 2 children, 5 and 7 years of age. SOCIAL HISTORY: As above. MEDICATIONS: At home include: 1. Neurontin. 2. Depakote. 3. Pristiq. 4. Seroquel. 5. Trazodone. 6. baclofen. ALLERGIES: Include CLINDAMYCIN. REVIEW OF SYSTEMS: Negative for fever, chills, abdominal pain. No urinary symptoms. The patient was lethargic yesterday. This morning she is awake, alert, oriented x3. EXAMINATION: Patient is comfortable, awake. She is not in any acute distress. Blood pressure 119/73, heart rate 85 per minute. She is afebrile. Examination of the heart: S1 and S2. Examination lungs: Bilateral breath sounds are heard. Abdomen is soft, nontender. Examination lower extremity shows no evidence of edema. REPAIRER WELDING SYSTEMS AND EQUIPMENT exam shows patient is moving all 4 extremities. No ocular defects are noted. No facial palsy is noted. No cranial nerve palsy is noted. LABS: Sodium of 140, potassium 3.7, chloride 108, CO2 is 18, hemoglobin 12.7, anion gap was 18 now is 14. Serum osmolality was at 327 on initial admission. Admission alcohol level was at 127. Salicylate less than 1. Acetone in the blood was negative. ASSESSMENT: 1. Poisoning with rubbing alcohol/hand corporate representative, mainly isopropyl alcohol poisoning. An osmolar gap was at 35 on initial admission. The patient also had alcohol in her system with ETOH level of 127. Acetone in the blood was negative and urine ketones were negative. Patient's liver enzymes are elevated on initial admission. Currently, they have improved as well. At this time, there is no indication for dialysis. Patient should continue with IV fluids and I will repeat another serum osmolarity. 2. Substance abuse with a previous history of opiate addiction. 3. Anion gap metabolic acidosis secondary to ETOH intoxication and isopropyl alcohol poisoning. The gap is now closing. Continue with Ringer lactate. PLAN: Continue IV fluids. No need for dialysis and repeat another serum osmolality to check it if the osmolar gap has closed. Thank you for this consultation. We will continue to follow the patient with you during her hospitalization. MMODL / IJN: [id number] /
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
[2017-06-23] MEDS ORDERED: SODIUM CHLORIDE 0.9% 1,000 ML BAG ONE (15:40)
--- NOTE | 2017-06-23 16:58 | P.PN ---
Progress Note - Text DATE OF SERVICE: 06/23/2017 PRESENTING COMPLAINT: Reading alcohol overdose HISTORY OF PRESENT ILLNESS: 27-year-old female history of alcohol and controlled substance abuse. Had been drinking vodka, had been at [place]. Drinking rubbing alcohol and hand four slide machine setter, mother petitioned the patient for treatment. INTERVAL HISTORY: 06/23/2017: Patient lying in the bed, gets up for exam, able to answer questions behavior appropriate. Some responses are slow, seems to be regretful regarding situation. Has full awareness of what she did last evening. Has no suicidal ideation or plan for hurting herself or anyone else. Psychiatry saw the patient will continue current psychiatric medications with no new additions. Patient does not need inpatient psych at this time. Tolerates her diet eating about 50%, ambulatory with assistance, remains a bit unsteady on her feet, no BM. REVIEW OF SYSTEMS: Done for constitutional ,cardiovascular, GI, pulmonary, psychiatry, neurologic with relevant findings as above. CURRENT MEDICATIONS Depakote 500 mg by mouth daily Neurontin 200 mg by mouth 3 times a day, Ativan for CIWA protocol, lurasidone, Robaxin 750 mg by mouth twice a day, nicotine patch. PHYSICAL EXAM VITAL SIGNS: Temperature 97.4, respirations 16, pulse 85, blood pressure 119/73, oxygen saturation 100% on room air. GENERAL APPEARANCE: Sitting up in bed, calm and cooperative. EYES: Pupils equal. Conjunctiva normal. NECK: JVD not raised. Mass not palpable. RESPIRATORY: Respiratory effort normal. Lungs fair air entry . CARDIOVASCULAR: First and second sounds normal. No edema. ABDOMEN: Soft. Liver and spleen not palpable. No tenderness. No mass palpable. PSYCHIATRY: Alert and oriented x3. Responses slow but appropriate. NEUROLOGICAL: Moves all 4 limbs, no facial asymmetry INVESTIGATIONS: CBC unremarkable, chloride 108, carbon dioxide 18, AST 64, ALTs 124. ASSESSMENT: -Acute metabolic encephalopathy secondary to rubbing alcohol abuse/overdose, improving -Elevated serum osmolality, improving -Alcoholic hepatitis improving -Chronic alcohol dependence. -Metabolic acidosis secondary to rubbing alcohol abuse, slow to respond -Obesity body mass index 36.8. -Chronic nicotine dependence, patient is a smoker. PLAN: Continue to monitor for alcohol withdrawal, no new medication additions current medication regimen appears to be working per psychiatry. No indication at this time for dialysis patient's liver enzymes have improved, continue with IV fluids and repeat serum osmolality. Anion gap metabolic acidosis is improving Repeat labs in the a.m. we'll continue to monitor patient closely plan of care discussed with the patient the bedside she is in agreement. We'll follow closely GRANT SPECIALIST statement: Patient was seen and examined by nurse practitioner Jovana Gutierrez and all elements of the case discussed with attending Dr. Lindsey
[2017-06-23] MEDS ORDERED: LURASIDONE 40 MG TAB PO SCH (17:00)
[2017-06-23] MEDS ORDERED: QUEtiapine 200 MG TAB PO SCH (21:00)
[2017-06-23] MEDS ORDERED: traZODone HCL 50 MG TAB PO SCH (21:00)
[2017-06-23] MEDS ORDERED: DIVALPROEX 500 MG TABLET.DR PO SCH (21:00)
[2017-06-24] MEDS: LACTATED RINGERS 1,000 ML IV SCH ×3 (01:49→14:29)
[2017-06-24] MEDS: 1: MVI, ADULT NO.4 WITH VIT K 10 ML, THIAMINE 100 MG, FOLIC ACID 1 MG in SODIUM CHLORIDE IV SCH ×8 (01:52→11:27)
[2017-06-24 07:40] VITALS: BP 112/66; PULSE 86; TEMP 98.4
[2017-06-24 07:40] LABS: Basophils % (A) 1 %; CH 31.4; CHCM 33.3; Eosinophils # (A) 0.2 k/uL (0-0.7); Eosinophils % (A) 3 %; HCT 37.2 % (34.0-46.0); HDW 2.39; HGB 12.5 gm/dL (11.4-16.0); Luc # (Auto) 0.11; Luc % (Auto) 2; Lymphocytes # (A) 2.1 k/uL (1.0-4.8); Lymphocytes % (A) 39 %; MCH 31.7 pg (25.0-35.0); MCHC 33.6 g/dL (31.0-37.0); MCV 94.4 fL (80.0-100.0); Mean Platelet Volume 7.5; Monocytes # (A) 0.3 k/uL (0-1.0); Monocytes % (A) 5 %; Neutrophils # (A) 2.6 k/uL (1.3-7.7); Neutrophils % (A) 50 %; RBC 3.94 m/uL (3.80-5.40); RDW 14.8 % (11.5-15.5); WBC 5.3 k/uL (3.8-10.6)
[2017-06-24 07:52] LABS: ALT 108 U/L (9-52); AST 77 U/L (14-36); Alkaline Phosphatase 76 U/L (38-126); Anion Gap 10 mmol/L; Blood Urea Nitrogen 6 mg/dL (7-17); Calcium 8.4 mg/dL (8.4-10.2); Carbon Dioxide 21 mmol/L (22-30); Chloride 109 mmol/L (98-107); Glucose 95 mg/dL (74-99); Non-African American GFR(MDRD) >60 (>60 ml/min/1.73 sqM); Potassium 4.2 mmol/L (3.5-5.1); Sodium 140 mmol/L (137-145); Total Bilirubin 0.6 mg/dL (0.2-1.3); Total Protein 6.5 g/dL (6.3-8.2)
[2017-06-24] MEDS: GABAPENTIN 100 MG CAP PO SCH (08:17)
[2017-06-24] MEDS: METHOCARBAMOL 750 MG TAB PO SCH (08:17)
[2017-06-24] MEDS: DIVALPROEX 500 MG TABLET.DR PO SCH (08:17)
[2017-06-24] MEDS: NICOTINE 21MG/24HR PATCH TRANSDERM SCH (08:17)
[2017-06-24] MEDS: ENOXAPARIN 40 MG/0.4 ML SYRINGE SQ SCH (08:18)
[2017-06-24] MEDS ORDERED: ACETAMINOPHEN TAB 325 MG TAB PO PRN (09:06)
[2017-06-24] MEDS: THIAMINE 100 MG TAB PO SCH (11:26)
--- NOTE | 2017-06-24 13:12 | P.PN ---
Progress Note - Text Interval History: Patient is a 27-year-old female and this is a follow-up to a consultation that was performed yesterday. Patient reports that she is doing well, reports that she is not feeling suicidal and is not feeling depressed. Patient and I discussed her use of rubbing alcohol as well as hand vigoureux printer and she stated that she buys it at the [employer] store. Patient states that she can return to live with her mother and we discussed referral at [facility] for alcohol outpatient counseling. Patient was agreeable to this. Mental Status: Appearance/Attitude: Patient is sitting up in bed, in no acute distress makes good eye contact and is cooperative. Behavior: Patient does not display any psychomotor agitation or retardation. Speech/Language: Patient's speech is spontaneous and of normal volume and rhythm and she is coherent. Thought Process: Patient is goal-directed and there is no evidence of circumstantial or tangential thought and no loose associations or flight of ideas. Thought Content: Patient denies any auditory or visual hallucinations no paranoid or delusional ideation is elicited. Patient states that she is not feeling depressed and was not attempting suicide but was trying to get high drinking rubbing alcohol. Suicidal/Homicidal Ideation: Patient denies any current suicidal or homicidal ideation. Sensorium/Cognition: Patient is alert and oriented to person, place, time and her memory is grossly intact. Mood/Affect: Patient's mood is pleasant and her affect is appropriate. Insight/Judgement: Patient's insight and judgment are fair. Assessment: Patient states that she was trying to get high when she drank rubbing alcohol and she has a history of using rubbing alcohol on hand vigoureux printer to become intoxicated, patient has a prior history of alcohol abuse. Patient states that she was not trying to kill herself and denies that she has any suicidal thoughts currently and no depressive symptoms were elicited. Patient feels that the medications that she was prescribed at the hospital are working well. Plan: Patient does not require inpatient psychiatric hospitalization, I spoke with the health social work professor regarding setting up follow-up at [facility] in [place] and requesting outpatient substance abuse counseling. Patient will continue on her current psychiatric medications I see no reason to adjust them at this time as she feels they're working well. I will sign off the case if there are any questions please not hesitate to contact me.
--- NOTE | 2017-06-24 17:35 | P.DS ---
Providers Date of admission: 06/22/17 19:53 Expected date of discharge: 06/24/17 Attending physician: Yair Lindsey Consults: 06/22/17 21:38 Consult Physician Routine Consulting Provider: Jamilah Rosenbaum Consult Reason/Comments: rubbing alcohol/hand radiocommunications technician overdose Do you want consulting provider notified?: Yes 06/23/17 06:40 Consult Physician Urgent Consulting Provider: Maida Crow Consult Reason/Comments: ETOH abuse Do you want consulting provider notified?: Yes Primary care physician: [facility] Course: FINAL DIAGNOSES: -Acute metabolic encephalopathy secondary to rubbing alcohol abuse/overdose, -Elevated serum osmolality, -Alcoholic hepatitis improving -Chronic alcohol dependence. -Metabolic acidosis secondary to rubbing alcohol abuse, -Obesity body mass index 36.8. -Chronic nicotine dependence, patient is a smoker. 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 Admitted for a methyl alcohol overdose, acute metabolic encephalopathy. Home medications ordered, nephrology consulted labs were evaluated and overall improved there was no indication for dialysis IV fluids were continued and serum osmolality repeated. Psychiatry consulted does not recommend any inpatient psychiatric hospitalization did speak with social work regarding setting up a follow-up [facility] in [place] and an outpatient substance abuse counseling session. Continue current psychiatric medications as the patient feels they're working well. Mentation improved, was sitting up in the bed alert awake able to answer questions clearly, understood what she had done, discussion had with attending physician regarding behavior, alcohol abuse and the effects that these 2 things can have on her life. Dr. Lindsey called the patient's mother discussed some things he felt should occur like regular exercise, and making sure she doesn't smoke or drink. Mother was agreeable to these things and Patient verbalized understanding. Ambulatory in the room and hallway, tolerating her diet eating 50-75% of each meal, moved her bowels and . Condition has stabilized, behavior is appropriate, consultants of cleared patient and patient is stable for discharge. PHYSICAL EXAM: CARDIOVASCULAR: First and second sounds noted no edema RESPIRATORY: Effort normal, lung sounds clear to auscultation GI: Abdomen soft nontender liver and spleen not palpable PSYCHIATRY: Alert and oriented 3, mood and affect normal. Patient was seen and examined by nurse practitioner Jovana Gutierrez in all elements of the case discussed with attending Dr. Lindsey DISPOSITION: Home to the care of her mother Patient Condition at Discharge: Good Plan - Discharge Summary New Discharge Prescriptions: New Nicotine 21Mg/24Hr Patch [Habitrol] 1 patch TRANSDERM DAILY #14 patch Continue Gabapentin [Neurontin] 200 mg PO TID traZODone HCL 150 mg PO HS QUEtiapine [SEROquel] 200 mg PO HS Methocarbamol [Robaxin-750] 750 mg PO BID Lurasidone HCl [Latuda] 60 mg PO DAILY@1700 Divalproex Sodium [Depakote] 1,000 mg PO HS Divalproex Sodium [Depakote] 500 mg PO DAILY Desvenlafaxine [Pristiq ER] 100 mg PO DAILY Discharge Medication List Gabapentin [Neurontin] 200 mg PO TID 05/04/17 [History] traZODone HCL 150 mg PO HS 05/04/17 [History] Divalproex Sodium [Depakote] 1,000 mg PO HS 06/22/17 [History] Divalproex Sodium [Depakote] 500 mg PO DAILY 06/22/17 [History] Lurasidone HCl [Latuda] 60 mg PO DAILY@1700 06/22/17 [History] Methocarbamol [Robaxin-750] 750 mg PO BID 06/22/17 [History] QUEtiapine [SEROquel] 200 mg PO HS 06/22/17 [History] Desvenlafaxine [Pristiq ER] 100 mg PO DAILY 06/23/17 [History] Nicotine 21Mg/24Hr Patch [Habitrol] 1 patch TRANSDERM DAILY #14 patch 06/24/17 [ Rx] Follow up Appointment(s)/Referral(s): Jamilah Rosenbaum MD [STAFF PHYSICIAN] - As Needed () Randy Mendoza MD [Primary Care Provider] - 1-2 days (patient requested to make her own follow-up appointment) Patient Instructions/Handouts: Abuse of Alcohol (DC) Activity/Diet/Wound Care/Special Instructions: follow up with [facility] in [place] for evaluation and for substance abuse treatment per social work Regular diet. No smoking, cessation information provided. Discharge Disposition: HOME SELF-CARE
--- NOTE | 2017-06-24 19:29 | PN ---
PROGRESS NOTE Patient is seen for followup for isopropyl alcohol poisoning. The patient is currently sitting up in bed. She denies any significant complaints. Her serum osmolality has decreased to 287. She is not acidotic anymore. She has been eating as well. PHYSICAL EXAMINATION: Blood pressure is 112/66, heart rate 86 per minute. She is afebrile. Examination shows patient is euvolemic. ABDOMEN: Soft, nontender, obese. LABS: Shows sodium 140, potassium 4.2, hemoglobin 12.5 g/dL. 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 Serum osmolarity has now decreased. Initial osmolar gap was 35. Current osmolar gap is only about 1. Serum osmolalities not elevated. Her acidosis has improved with CO2 now at 21. The patient is stable from Nephrology standpoint, we can discontinue the IV fluids and continue to maintain good oral intake. MMODL / IJN: [id number] /
--- NOTE | 2017-06-24 21:05 | PN ---
PROGRESS NOTE DATE OF SERVICE: 06/23/17 ATTENDING NOTE: This patient seen and examined by me. I discussed with my BONE PROCESS OPERATOR Bernadette Chloémcao. The patient presented with drinking of rubbing alcohol. Doing better this morning. Has been up to the bathroom. PHYSICAL EXAMINATION: Temperature 97, pulse 85, respiratory rate is 16, blood pressure 109/73. LUNGS: Clear. Cardiovascular first and second sounds normal. Psych far more awake. ASSESSMENT: 1. Acute metabolic encephalopathy, improving. 2. Alcoholic hepatitis. 3. Metabolic acidosis. PLAN: 1. Care was discussed with the patient. 2. Reinforced the fact that she should not be smoking. 3. Talked about her family situation. 4. Talked about alcohol yet again. 5. Smoke cessation counseling. 6. Time spent about 4 to 5 minutes in addition to the progress note. MMBIENVENIDOL / IJN: [id number] /
--- NOTE | 2017-06-25 11:06 | DS ---
DISCHARGE SUMMARY DATE OF ADMISSION: 06/22/2017 DATE OF DISCHARGE: 06/24/2017 ADDENDUM DISCHARGE SUMMARY ATTENDING NOTE This patient was seen and examined by me. I discussed with my nurse practitioner, Ms. Gutierrez. Patient doing much better today. Again patient is counseled against smoking and alcohol. I talked to her about going to rehab. Also spoke to patient's mother over the phone, I told her also advised not to give give money for smoking, except use money towards exercise program. For example, [employer], is only $12.00 a month. Questions were answered. LUNGS: Clear to auscultation. CARDIOVASCULAR: First and second sounds normal. PSYCH: Alert and oriented x3. Patient's bicarb is 21. Serum osmolality is normalized. LFTs coming down. PLAN: Patient to follow up with a family doctor and also to follow and keep an appointment at [facility]. Discharge planning more than 35 minutes including discussion. PEDRO / RADHA: [id number] /
== END 2017-06-24 15:20 | disposition home or self-care (01) | DRG 917 ==
LOC: EC 16:00 → 4MS4W 19:53
PROVIDERS: ADMIT Hospitalist; ATTEND Hospitalist
DX: T51.2X1A Toxic effect of 2-Propanol, accidental (unintentional), initial encounter (principal); G92 Toxic encephalopathy; R45.851 Suicidal ideations; E87.2 Acidosis; K70.10 Alcoholic hepatitis without ascites; E66.9 Obesity, unspecified; F31.9 Bipolar disorder, unspecified; G43.909 Migraine, unspecified, not intractable, without status migrainosus; F17.200 Nicotine dependence, unspecified, uncomplicated; F10.229 Alcohol dependence with intoxication, unspecified; Y90.6 Blood alcohol level of 120-199 mg/100 ml; Z79.899 Other long term (current) drug therapy; Z88.1 Allergy status to other antibiotic agents; Z68.36 Body mass index [BMI] 36.0-36.9, adult; Z71.41 Alcohol abuse counseling and surveillance of alcoholic; Z71.6 Tobacco abuse counseling
CPT/HCPCS: 36415; 80053; 80306; 80320; 81003; 81025; 82009; 82010; 82803; 83520; 83735; 83930; 85025; 93005

== ENCOUNTER 2019-07-19 19:33 | Emergency (ER) | payer OTHER ==
[2019-07-19 19:39] VITALS: TEMP 97.9
[2019-07-19] MEDS ORDERED: KETOROLAC 30 MG/ML 1 ML VIAL IVP STA (19:58)
[2019-07-19] MEDS ORDERED: SODIUM CHLORIDE 0.9% 1,000 ML IV STA (19:58)
--- NOTE | 2019-07-19 19:58 | ED ---
Chest Pain HPI - General Chief Complaint: Chest Pain Stated Complaint: Chest pain Time Seen by Provider: 07/19/19 19:40 Source: patient Mode of arrival: ambulatory Limitations: no limitations - History of Present Illness Initial Comments: The patient is a 29 old female presents emergency department with reported chest pain that started this evening. She states that she was at rest when the symptoms started. She describes it as a left-sided chest pain which is worse with inspiration and better with rest. She also reports that she can reproduce it with movement. No ripping or tearing sensation to her back. Denies any numbness or tingling in her upper or lower extremities. She denies a history of cardiac disease. No family history of premature cardiac . She denies a history of DVT or PE. Her grandparents has a history of PE. She denies any recent travel or prolonged immobility. No recent surgeries. Does report that she has an Implanon but does not take oral contraceptives. No calf pain or swelling. Denies pedal edema. She denies any abdominal pain. No nausea, vomiting or diarrhea or constipation. Denies any dysuria, hematuria or difficulty voiding. Denies any pelvic pain. No abnormal vaginal bleeding or discharge. Denies a cough, fevers or chills. No hemoptysis. There are no alleviating, precipitating or modifying factors - Related Data Home Medications Medication Instructions Recorded Confirmed Lurasidone HCl [Latuda] 60 mg PO HS 06/22/17 07/19/19 Desvenlafaxine [Pristiq ER] 100 mg PO DAILY 06/23/17 07/19/19 Baclofen [Lioresal] 20 mg PO TID 01/10/19 07/19/19 Gabapentin [Neurontin] 300 mg PO TID 01/10/19 07/19/19 Phentermine HCl [Adipex-P] 37.5 mg PO DAILY 01/10/19 07/19/19 hydrOXYzine PAMOATE [Vistaril] 25 mg PO BID PRN 01/10/19 07/19/19 traZODone HCL [Desyrel] 200 mg PO HS 01/10/19 07/19/19 HYDROcodone/APAP 7.5-325MG [[place] 1 tab PO BID 07/19/19 07/19/19 7.5-325] Ibuprofen [Motrin] 800 mg PO TID PRN 07/19/19 07/19/19 Zolpidem [Ambien] 10 mg PO HS 07/19/19 07/19/19 Previous Rx's Medication Instructions Recorded Naproxen [Naprosyn] 500 mg PO Q12HR PRN #20 tab 07/19/19 Allergies Allergy/AdvReac Type Severity Reaction Status Date / Time clindamycin AdvReac Nausea & Verified 07/19/19 19:52 Vomiting divalproex sodium AdvReac toxicity Verified 07/19/19 19:52 [From Depakote] Review of Systems ROS Statement: Those systems with pertinent positive or pertinent negative responses have been documented in the HPI. ROS Other: All systems not noted in ROS Statement are negative. EKG Findings - EKG Comments: EKG Findings:: EKG demonstrates a sinus tachycardia with a ventricular rate of 104. [place] interval 146. QRS 80. QTC 478. No acute ST segment elevations or depressions concerning for ischemic changes. No signs of Feqth-Cnuejrgms-Ayzav or Brugada syndrome. Past Medical History Past Medical History: Osteoarthritis (OA) Additional Past Medical History / Comment(s): migraines, endometriosis, neuropathy, carpal tunnel, chronic back pain History of Any Multi-Drug Resistant Organisms: None Reported Past Surgical History: No Surgical Hx Reported Additional Past Surgical History / Comment(s): laproscopic for endometriosis Past Psychological History: Anxiety, Bipolar, Depression Smoking Status: Current every day smoker Past Alcohol Use History: None Reported Past Drug Use History: None Reported - Past Family History Father History Unknown: Yes Additional Family Medical History / Comment(s): pt unable to provide any family history. General Exam Limitations: no limitations General appearance: alert, in no apparent distress Head exam: Present: atraumatic, normocephalic, normal inspection Eye exam: Present: normal appearance, PERRL, EOMI. Absent: scleral icterus, conjunctival injection, periorbital swelling ENT exam: Present: normal exam, mucous membranes moist Neck exam: Present: normal inspection. Absent: tenderness, meningismus, lymphadenopathy Respiratory exam: Present: normal lung sounds bilaterally. Absent: respiratory distress, wheezes, rales, rhonchi, stridor Cardiovascular Exam: Present: normal rhythm, tachycardia, normal heart sounds. Absent: systolic murmur, diastolic murmur, rubs, gallop, clicks GI/Abdominal exam: Present: soft, normal bowel sounds. Absent: distended, tenderness, guarding, rebound, rigid Extremities exam: Present: normal inspection, full ROM, normal capillary refill. Absent: tenderness, pedal edema, joint swelling, calf tenderness Back exam: Present: normal inspection Neurological exam: Present: alert, oriented X3, CN II-XII intact Psychiatric exam: Present: normal affect, normal mood Skin exam: Present: warm, dry, intact, normal color. Absent: rash Course Vital Signs 07/19/19 07/19/19 07/19/19 19:35 20:00 20:30 Temperature 97.9 F Pulse Rate 105 H 102 H 93 Respiratory 18 18 Rate Blood Pressure 137/90 140/94 O2 Sat by Pulse 100 98 97 Oximetry 07/19/19 07/19/19 07/19/19 20:40 20:50 21:00 Temperature Pulse Rate 88 89 91 Respiratory 18 Rate Blood Pressure 141/88 O2 Sat by Pulse 97 98 98 Oximetry 07/19/19 22:26 Temperature Pulse Rate 80 Respiratory 19 Rate Blood Pressure 138/88 O2 Sat by Pulse 98 Oximetry Chest Pain MDM - MDM Upon arrival the patient is placed in room 15. After history and physical exam was performed, IV access is established. The patient was given 15 mg of Toradol for pain control. Laboratory says were conducted and the patient was sent for chest x-ray. CBC shows a white blood cell count of 12. D-dimer is 1.47. Urine hCG is negative. Chest x-ray demonstrates no acute findings. As the patient's d-dimer is elevated she is sent back for CT PE study. CT is negative for PE. I did discuss diagnosis, differential treatment options. The patient is requesting something else for pain and therefore she is given 4 mg of morphine. The patient then felt improved. I did draw a second troponin. The patient will be discharged at this time. I did provide her with information for the [facility]. She is to call her primary care physician to be evaluated within the next 2-4 days. She will need Holter monitoring and an echo of her heart. The patient has any new or worsening symptoms she should return to the emergency room. Patient was in agreement with the treatment plan and she was discharged home in stable condition Disposition Clinical Impression: Chest pain Disposition: HOME SELF-CARE Condition: Stable Instructions (If sedation given, give patient instructions): Chest Pain (ED) Additional Instructions: Please follow-up with the primary care doctor in 2-4 days. You should see the drug worker as well for a full cardiac workup. return to the emergency room for any new or worsening symptoms Prescriptions: Naproxen [Naprosyn] 500 mg PO Q12HR PRN #20 tab PRN Reason: Pain Is patient prescribed a controlled substance at d/c from ED?: No Referrals: Cezar Basurto MD [Primary Care Provider] - 1-2 days [facility] [Provider Group] - 1-2 days Time of Disposition: 22:07
[2019-07-19 20:15] LABS: Basophils # (A) 0.3 k/uL (0-0.2); Basophils % (A) 2 %; Eosinophils # (A) 0.5 k/uL (0-0.7); Eosinophils % (A) 4 %; HCT 42.2 % (34.0-46.0); HGB 13.4 gm/dL (11.4-16.0); Lymphocytes # (A) 3.1 k/uL (1.0-4.8); Lymphocytes % (A) 26 %; MCH 28.4 pg (25.0-35.0); MCHC 31.8 g/dL (31.0-37.0); MCV 89.5 fL (80.0-100.0); Monocytes # (A) 0.6 k/uL (0-1.0); Monocytes % (A) 5 %; Neutrophils # (A) 7.3 k/uL (1.3-7.7); Neutrophils % (A) 61 %; Platelet Count 441 k/uL (150-450); RBC 4.72 m/uL (3.80-5.40); RDW 13.6 % (11.5-15.5)
[2019-07-19 20:27] LABS: ALT 32 U/L (9-52); AST 21 U/L (14-36); African American GFR (CKD) >90 (>60 ml/min/1.73 sqM); Albumin 4.4 g/dL (3.5-5.0); Alkaline Phosphatase 108 U/L (38-126); Anion Gap 9 mmol/L; Blood Urea Nitrogen 12 mg/dL (7-17); Calcium 9.6 mg/dL (8.4-10.2); Carbon Dioxide 27 mmol/L (22-30); Chloride 105 mmol/L (98-107); Glucose 135 mg/dL (74-99); Magnesium 1.9 mg/dL (1.6-2.3); Potassium 4.3 mmol/L (3.5-5.1); Sodium 141 mmol/L (137-145); Total Bilirubin 0.1 mg/dL (0.2-1.3); Total Protein 7.6 g/dL (6.3-8.2)
--- NOTE | 2019-07-19 20:38 | XR ---
EXAMINATION TYPE: XR chest 2V DATE OF EXAM: 07/19/2019 COMPARISON: NONE HISTORY: Chest pain TECHNIQUE: Frontal and lateral views of the chest are obtained. FINDINGS: Heart and mediastinum are normal. Lungs are clear. Costophrenic angles are clear. There ar e chest leads. There is no pleural effusion. IMPRESSION: No active cardiopulmonary disease. Suboptimal inspiration.
[2019-07-19 20:49] LABS: INR 0.8 (<1.2); Partial Thromboplastin Time 21.9 sec (22.0-30.0); Prothrombin Time 9.4 sec (9.0-12.0)
[2019-07-19 20:55] LABS: D-Dimer 1.47 mg/L FEU (<0.60)
--- NOTE | 2019-07-19 21:25 | CT ---
EXAMINATION TYPE: CT chest angio for PE DATE OF EXAM: 07/19/2019 COMPARISON: None HISTORY: Elevated d-dimer CT DLP: 864.8 mGycm Automated exposure control for dose reduction was used. CONTRAST: CT Chest for pulmonary embolism performed with with IV Contrast, patient injected with 100 mL of Isov ue 370. FINDINGS: There are 3-D post processed images. Mediastinum appears normal. There is no sign of thoracic aortic aneurysm or dissection. The ascending aorta measures 3.8 cm. There are no hilar masses. Heart size is normal. There is no pericardial effu angelique. There is normal contrast opacification of the pulmonary arteries. I see no filling defects. Lungs are clear of consolidation. There is no pleural effusion. There is no evidence of a pulmonary m ass. Thoracic spine is intact. The sternum is intact. IMPRESSION: No evidence of pulmonary embolism.
[2019-07-19] MEDS ORDERED: MORPHINE SULFATE 4 MG/ML SYRINGE IVP STA (21:33)
[2019-07-19 22:28] VITALS: BP 138/88; PULSE 80; RESP 19
== END 2019-07-19 22:28 | disposition home or self-care (01) ==
LOC: EC 19:33
DX: R07.1 Chest pain on breathing (principal); R79.1 Abnormal coagulation profile; M19.90 Unspecified osteoarthritis, unspecified site; G89.29 Other chronic pain; M54.9 Dorsalgia, unspecified; G62.9 Polyneuropathy, unspecified; F41.9 Anxiety disorder, unspecified; F31.9 Bipolar disorder, unspecified; F17.200 Nicotine dependence, unspecified, uncomplicated; Z79.899 Other long term (current) drug therapy; Z79.891 Long term (current) use of opiate analgesic; Z88.1 Allergy status to other antibiotic agents; Z88.8 Allergy status to other drugs, medicaments and biological substances
CPT/HCPCS: 99285; 96374; 96375; 96361; 36415; 93005; 85379; 80053; 83690; 83735; 84484; 85025; 85610; 85730; 81025; 71046; 71275; J2270; J1885; Q9967

== ENCOUNTER → 2020-06-02 | Outpatient (CLI) | payer OTHER ==
--- NOTE | 2020-06-02 13:52 | US ---
EXAMINATION TYPE: US mass soft tissue chest/back DATE OF EXAM: 06/02/2020 COMPARISON: NONE CLINICAL HISTORY: soft tissue mass M79.9. Patient states having two lump on back that are most promin ent in the morning. Patient states it changes in size. One lump in lower right back and the other i s midline back. At time of study, no palpables seen or felt. Area of concern scanned. No prominent masses or fluid collections identified. IMPRESSION: No sonographic abnormality identified. If symptoms persist consider MRI.
== END | disposition home or self-care (01) ==
LOC: RADUSWWP 12:35
PROVIDERS: ATTEND Student in an Organized Health Care Education/Training Program
DX: M79.89 Other specified soft tissue disorders (principal)

== ENCOUNTER → 2020-11-28 | Outpatient (CLI) | payer OTHER ==
--- NOTE | 2020-11-29 14:47 | MM ---
Reason for exam: clinical finding. Baseline mammogram. History: Taking hormonal contraceptives beginning at age 15. Physical Findings: Nurse did not find any significant physical abnormalities on exam. MG 3D Diag Mammo W/Cad TRUNG Bilateral CC and MLO view(s) were taken. LM, spot compression CC, and spot compression MLO view(s) were taken of the left breast. The breast tissue is heterogeneously dense. This may lower the sensitivity of mammography. Vague focal asymmetry may be present on 3D images at 1 o'clock left breast. This becomes less defined on additional views. These results were verbally communicated with the patient and result sheet given to the patient on 11/28/20. ASSESSMENT: Incomplete: need additional imaging evaluation, BI-RAD 0 RECOMMENDATION: Ultrasound of the left breast. (12-1 o'clock and palpable)
--- NOTE | 2020-11-29 14:48 | USB ---
Reason for exam: additional evaluation requested from abnormal screening. History: Taking hormonal contraceptives beginning at age 15. US Breast Limited LT Technologist: Suzie Alexandre Left limited breast ultrasound including focal area of concern, retroareolar and axilla demonstrates lymph nodes within normal limits at the axilla. No cystic or solid lesion seen. Scanned 12-3 o'clock. These results were verbally communicated with the patient and result sheet given to the patient on 11/28/20. ASSESSMENT: Probably benign, BI-RAD 3 RECOMMENDATION: Follow-up diagnostic mammogram of the left breast in 6 months. Manage on a clinical basis with regard to any suspicious palpable.
== END | disposition home or self-care (01) ==
LOC: RADMAMWWP 08:24
PROVIDERS: ATTEND Family Medicine
DX: N64.4 Mastodynia (principal); R92.8 Other abnormal and inconclusive findings on diagnostic imaging of breast
CPT/HCPCS: 77066; 76642; G0279; 77062

== ENCOUNTER 2021-09-07 15:37 | Emergency (ER) | payer OTHER ==
[2021-09-07 15:41] VITALS: BP 119/82; PULSE 74; RESP 19; TEMP 97.9
[2021-09-07] MEDS ORDERED: HYDROcodone/APAP 10-325MG 1 EACH TAB PO ONE (15:58)
[2021-09-07] MEDS ORDERED: PENICILLIN VK 500MG STARTER 4 TAB BTL PO STA (15:58)
--- NOTE | 2021-09-07 16:02 | ED ---
ENT HPI - General Chief complaint: Dental/Oral Stated complaint: jaw & facial pain Time Seen by Provider: 09/07/21 15:52 Source: patient, police, RN notes reviewed Limitations: no limitations - History of Present Illness Initial comments: This a 31-year-old female presents emergency Department with chief complaint of dental and pain. Patient states started yesterday with some swelling increase in pain today. Patient states she has poor dentition. Patient denies any fever states that she sits in chills no difficulty swallowing states that she just noticed swelling along her right cheek. Patient offers no other associated complaints. - Related Data Home Medications Medication Instructions Recorded Confirmed Lurasidone HCl [Latuda] 60 mg PO HS 06/22/17 07/19/19 Desvenlafaxine [Pristiq ER] 100 mg PO DAILY 06/23/17 07/19/19 Baclofen [Lioresal] 20 mg PO TID 01/10/19 07/19/19 Gabapentin [Neurontin] 300 mg PO TID 01/10/19 07/19/19 Phentermine HCl [Adipex-P] 37.5 mg PO DAILY 01/10/19 07/19/19 hydrOXYzine pamoate [Vistaril] 25 mg PO BID PRN 01/10/19 07/19/19 traZODone HCL [Desyrel] 200 mg PO HS 01/10/19 07/19/19 HYDROcodone/APAP 7.5-325MG [[place] 1 tab PO BID 07/19/19 07/19/19 7.5-325] Ibuprofen [Motrin] 800 mg PO TID PRN 07/19/19 07/19/19 Zolpidem [Ambien] 10 mg PO HS 07/19/19 07/19/19 Previous Rx's Medication Instructions Recorded Naproxen [Naprosyn] 500 mg PO Q12HR PRN #20 tab 07/19/19 Penicillin V Potassium [Pen Vee K] 500 mg PO QID #40 tablet 09/07/21 Allergies Allergy/AdvReac Type Severity Reaction Status Date / Time clindamycin AdvReac Nausea & Verified 09/07/21 15:41 Vomiting divalproex sodium AdvReac toxicity Verified 09/07/21 15:41 [From Depakote] Review of Systems ROS Statement: Those systems with pertinent positive or pertinent negative responses have been documented in the HPI. ROS Other: All systems not noted in ROS Statement are negative. Past Medical History Past Medical History: Osteoarthritis (OA) Additional Past Medical History / Comment(s): migraines, endometriosis, neuropathy, carpal tunnel, chronic back pain History of Any Multi-Drug Resistant Organisms: None Reported Past Surgical History: No Surgical Hx Reported Additional Past Surgical History / Comment(s): laproscopic for endometriosis Past Psychological History: Anxiety, Bipolar, Depression Smoking Status: Never smoker Past Alcohol Use History: None Reported Past Drug Use History: None Reported - Past Family History Father History Unknown: Yes Additional Family Medical History / Comment(s): pt unable to provide any family history. General Exam Limitations: no limitations General appearance: alert, in no apparent distress Head exam: Present: atraumatic, normocephalic, normal inspection Eye exam: Present: normal appearance, PERRL, EOMI. Absent: scleral icterus, conjunctival injection, periorbital swelling ENT exam: Present: mucous membranes moist, other (Swelling along the right man dibular region). Absent: normal oropharynx (Poor dentition) Neck exam: Present: normal inspection, full ROM. Absent: tenderness, meningismus, lymphadenopathy Respiratory exam: Present: normal lung sounds bilaterally. Absent: respiratory distress, wheezes, rales, rhonchi, stridor Cardiovascular Exam: Present: regular rate, normal rhythm, normal heart sounds. Absent: systolic murmur, diastolic murmur, rubs, gallop, clicks Course Vital Signs 09/07/21 15:38 Temperature 97.9 F Pulse Rate 74 Respiratory 19 Rate Blood Pressure 119/82 O2 Sat by Pulse 98 Oximetry Medical Decision Making - Medical Decision Making Patient is a underlying dental infection will be treated with antibiotics will follow-up with dentist return for any worsening changes symptoms. Disposition Clinical Impression: Dental infection Disposition: HOME SELF-CARE Condition: Stable Instructions (If sedation given, give patient instructions): Dental Abscess (ED) Additional Instructions: Please return to the Emergency Department if symptoms worsen or any other concerns. Prescriptions: Penicillin V Potassium [Pen Vee K] 500 mg PO QID #40 tablet Is patient prescribed a controlled substance at d/c from ED?: No Referrals: Hai Veronica Jr, [Primary Care Provider] - 1-2 days Time of Disposition: 16:02
== END 2021-09-07 16:17 | disposition home or self-care (01) ==
LOC: EC 15:37
DX: K04.7 Periapical abscess without sinus (principal); Z88.8 Allergy status to other drugs, medicaments and biological substances; Z88.1 Allergy status to other antibiotic agents
CPT/HCPCS: 99283

== ENCOUNTER 2022-04-20 21:54 | Emergency (ER) | payer OTHER ==
[2022-04-20 22:00] VITALS: RESP 18
[2022-04-20] MEDS ORDERED: traMADol 50 MG STARTER PACK 3 TAB BTL PO STA (22:07)
[2022-04-20] MEDS ORDERED: traMADol 50 MG TAB PO STA (22:07)
[2022-04-20] MEDS ORDERED: AMOXIC-POT CLAV 875-125MG 1 EACH TAB PO STA (22:07)
[2022-04-20] MEDS ORDERED: AMOXIC-POT CLAV 875MG STARTER PACK 2 TAB BTL PO STA (22:07)
--- NOTE | 2022-04-20 22:11 | ED ---
ENT HPI - General Chief complaint: Dental/Oral Stated complaint: Dental Pain Time Seen by Provider: 04/20/22 22:02 Source: patient, RN notes reviewed, old records reviewed Mode of arrival: ambulatory - History of Present Illness Initial comments: This is a 32-year-old female DF for evaluation. Patient presents today for evaluation regards to severe tooth pain. Patient has had rear molars removed move. Patient today has severe pain in her right rear lower jaw. Some swelling around her chin. Patient states pain started while she was at work tonight. Pain got severe. Patient does take Isom every day for pain which has not helped with this pain currently. No fevers no triadic injury she is able to open her mouth eat and drink without difficulty MD complaint: tooth pain -: hour(s) Location: tooth # (Right rear lower tooth) Severity: severe Severity scale (1-10): 10 Quality: stabbing Consistency: constant Improves with: none Worsens with: swallowing, eating Context-Epistaxis: history of similar Context- Dental: history of dental caries, poor dental care Associated Symptoms: toothache - Related Data Home Medications Medication Instructions Recorded Confirmed Lurasidone HCl [Latuda] 60 mg PO HS 06/22/17 07/19/19 Desvenlafaxine [Pristiq ER] 100 mg PO DAILY 06/23/17 07/19/19 Baclofen [Lioresal] 20 mg PO TID 01/10/19 07/19/19 Gabapentin [Neurontin] 300 mg PO TID 01/10/19 07/19/19 Phentermine HCl [Adipex-P] 37.5 mg PO DAILY 01/10/19 07/19/19 hydrOXYzine pamoate [Vistaril] 25 mg PO BID PRN 01/10/19 07/19/19 traZODone HCL [Desyrel] 200 mg PO HS 01/10/19 07/19/19 HYDROcodone/APAP 7.5-325MG [Isom 1 tab PO BID 07/19/19 07/19/19 7.5-325] Ibuprofen [Motrin] 800 mg PO TID PRN 07/19/19 07/19/19 Zolpidem [Ambien] 10 mg PO HS 07/19/19 07/19/19 Previous Rx's Medication Instructions Recorded Naproxen [Naprosyn] 500 mg PO Q12HR PRN #20 tab 07/19/19 Penicillin V Potassium [Pen Vee K] 500 mg PO QID #40 tablet 09/07/21 Allergies Allergy/AdvReac Type Severity Reaction Status Date / Time clindamycin AdvReac Nausea & Verified 09/07/21 15:41 Vomiting divalproex sodium AdvReac toxicity Verified 09/07/21 15:41 [From Depakote] Review of Systems ROS Statement: Those systems with pertinent positive or pertinent negative responses have been documented in the HPI. ROS Other: All systems not noted in ROS Statement are negative. Past Medical History Past Medical History: Osteoarthritis (OA) Additional Past Medical History / Comment(s): migraines, endometriosis, neuropathy, carpal tunnel, chronic back pain; bulging discs History of Any Multi-Drug Resistant Organisms: None Reported Past Surgical History: No Surgical Hx Reported Additional Past Surgical History / Comment(s): laproscopic for endometriosis Past Psychological History: Anxiety, Bipolar, Depression Smoking Status: Current every day smoker Past Alcohol Use History: None Reported Past Drug Use History: Marijuana - Past Family History Father History Unknown: Yes Additional Family Medical History / Comment(s): pt unable to provide any family history. General Exam General appearance: alert, in no apparent distress Head exam: Present: atraumatic, normocephalic, normal inspection Eye exam: Present: normal appearance, PERRL, EOMI. Absent: scleral icterus, conjunctival injection, periorbital swelling ENT exam: Present: normal exam, mucous membranes moist, other (Significant dental caries and right lower dental tenderness without visible abscess) Neck exam: Present: normal inspection. Absent: tenderness, meningismus, lymphadenopathy Respiratory exam: Present: normal lung sounds bilaterally. Absent: respiratory distress, wheezes, rales, rhonchi, stridor Cardiovascular Exam: Present: regular rate, normal rhythm, normal heart sounds. Absent: systolic murmur, diastolic murmur, rubs, gallop, clicks GI/Abdominal exam: Present: soft, normal bowel sounds. Absent: distended, tenderness, guarding, rebound, rigid Extremities exam: Present: normal inspection, full ROM, normal capillary refill. Absent: tenderness, pedal edema, joint swelling, calf tenderness Back exam: Present: normal inspection Neurological exam: Present: alert, oriented X3, CN II-XII intact Psychiatric exam: Present: normal affect, normal mood Skin exam: Present: warm, dry, intact, normal color. Absent: rash Course Vital Signs 04/20/22 21:55 Temperature 97.9 F Pulse Rate 105 H Respiratory 18 Rate Blood Pressure 128/83 O2 Sat by Pulse 100 Oximetry - Reevaluation(s) Reevaluation #1: 04/20/22 22:09 Medical records reviewed Reevaluation #2: 04/20/22 22:09 Patient's pain is improved Reevaluation #3: 04/20/22 22:09 Patient informed of results, follow with dental care Medical Decision Making - Medical Decision Making 32 female to the emergency room for evaluation of severe right rear lower molar pain. Patient has currently adequate pain control and can be discharged home on antibiotics Disposition Clinical Impression: Dental abscess, Dental caries Disposition: HOME SELF-CARE Condition: Good Instructions (If sedation given, give patient instructions): Dental Abscess (ED), Toothache (ED) Is patient prescribed a controlled substance at d/c from ED?: No Referrals: Hai Veronica Jr, DO [Primary Care Provider] - 1-2 days Lucio Al DDS [STAFF PHYSICIAN] - 1-2 days Ruddy Yoon DDS [STAFF PHYSICIAN] - 1-2 days
[2022-04-20 23:01] VITALS: BP 117/90; PULSE 73; TEMP 98.2
== END 2022-04-20 23:08 | disposition home or self-care (01) ==
LOC: EC 21:54
DX: K04.7 Periapical abscess without sinus (principal); K02.9 Dental caries, unspecified; F17.200 Nicotine dependence, unspecified, uncomplicated; M19.90 Unspecified osteoarthritis, unspecified site; Z88.1 Allergy status to other antibiotic agents; Z88.8 Allergy status to other drugs, medicaments and biological substances; Z79.899 Other long term (current) drug therapy
CPT/HCPCS: 99282

== ENCOUNTER 2022-05-19 16:48 | Emergency (ER) | payer OTHER ==
[2022-05-19 17:00] VITALS: TEMP 98.8
[2022-05-19] MEDS ORDERED: SODIUM CHLORIDE 0.9% 1,000 ML IV STA (17:09)
[2022-05-19] MEDS ORDERED: MORPHINE SULFATE 4 MG/ML SYRINGE IV STA (17:09)
[2022-05-19] MEDS ORDERED: AMPICILLIN-SULBACTAM 3 GM in SODIUM CHLORIDE 0.9% 100 ML IVPB STA (17:10)
--- NOTE | 2022-05-19 17:14 | ED ---
ENT HPI - General Chief complaint: Dental/Oral Stated complaint: Facial Swelling Time Seen by Provider: 05/19/22 17:06 Source: patient, RN notes reviewed Mode of arrival: ambulatory Limitations: no limitations - History of Present Illness Initial comments: Patient with a history of chronic pain presents to the emergency department complaining of right upper dental pain which been present for several days. Patient saw an urgent care 3 days ago and was treated with Augmentin which she has been taking. Patient went back today and was told to come for IV antibiotics. Patient complaining of some swelling and pain to the right upper molar area extending onto the right infraorbital area. She denying any fever or chills. No difficulty swallowing. No headache, no fever or chills, no changes in vision or hearing, no sore throat or difficulty with speech, no neck pain, no chest pain or shortness of breath, no abdominal pain, no nausea or vomiting, no changes in urination or bowel movements, no numbness or tingling, no extremity pain, no skin rashes or lesions. Note that the patient has current every day cigarette smoker. Past medical, surgical, social, and family history reviewed. - Related Data Home Medications Medication Instructions Recorded Confirmed HYDROcodone/APAP 7.5-325MG [[place] 1 tab PO QID PRN 07/19/19 05/19/22 7.5-325] Albuterol Sulfate [Proair Hfa] 1 puff INHALATION RT-Q4H PRN 05/19/22 05/19/22 Escitalopram [Lexapro] 20 mg PO DAILY 05/19/22 05/19/22 Methylphenidate HCl 54 mg PO DAILY 05/19/22 05/19/22 [Methylphenidate HCl ER] Naloxone HCl 4 mg NS ONCE PRN 05/19/22 05/19/22 Naproxen [Naprosyn] 500 mg PO TID 05/19/22 05/19/22 methocarbamoL [Methocarbamol] 750 mg PO TID PRN 05/19/22 05/19/22 Previous Rx's Medication Instructions Recorded Amoxic-Pot Clav 875-125Mg 1 tab PO Q12HR #20 tablet 04/20/22 [Augmentin 875-125] Allergies Allergy/AdvReac Type Severity Reaction Status Date / Time clindamycin AdvReac Nausea & Verified 05/19/22 19:49 Vomiting divalproex sodium AdvReac toxicity Verified 05/19/22 19:49 [From Depakote] Review of Systems ROS Statement: Those systems with pertinent positive or pertinent negative responses have been documented in the HPI. ROS Other: All systems not noted in ROS Statement are negative. Past Medical History Past Medical History: Osteoarthritis (OA) Additional Past Medical History / Comment(s): migraines, endometriosis, neuropathy, carpal tunnel, chronic back pain; bulging discs History of Any Multi-Drug Resistant Organisms: None Reported Past Surgical History: No Surgical Hx Reported Additional Past Surgical History / Comment(s): laproscopic for endometriosis Past Psychological History: Anxiety, Bipolar, Depression Smoking Status: Current every day smoker Past Alcohol Use History: None Reported Past Drug Use History: Marijuana - Past Family History Father History Unknown: Yes Additional Family Medical History / Comment(s): pt unable to provide any family history. General Exam - General Exam Comments Initial Comments: Signs reviewed, patient in no acute distress. Limitations: no limitations General appearance: alert, in no apparent distress Head exam: Present: atraumatic, normocephalic, normal inspection, other (Patient does have some edema to the right infraorbital area adjacent to the right upper molars externally. No erythema. No break in skin integrity. No rashes or lesions. Does not appear to be consistent with facial cellulitis.) Eye exam: Present: normal appearance, PERRL, EOMI. Absent: scleral icterus, conjunctival injection, periorbital swelling ENT exam: Present: normal exam, mucous membranes moist, TM's normal bilaterally, normal external ear exam, other (Patient does have dental caries noted to the right upper molar area. Minimal edema to the gumline. No definitive abscess. There is some tenderness to this area. Airway is patent.). Absent: mucous membranes dry Expanded Ear exam: Present: normal external inspection Mouth exam: Present: normal external inspection, tongue normal. Absent: drooling, trismus, muffled voice, tongue elevation, laceration Teeth exam: Present: dental caries, dental tenderness # (Adjacent to right upper molars), gingival enlargement (Adjacent right upper molars), other (No abscess) Throat exam: normal inspection. negative: tonsillar erythema, tonsillomegaly, tonsillar exudate, R peritonsillar mass, L peritonsillar mass Neck exam: Present: normal inspection, full ROM. Absent: tenderness, meningismus, lymphadenopathy Respiratory exam: Present: normal lung sounds bilaterally. Absent: respiratory distress, wheezes, rales, rhonchi, stridor Cardiovascular Exam: Present: regular rate, normal rhythm, normal heart sounds. Absent: systolic murmur, diastolic murmur, rubs, gallop, clicks GI/Abdominal exam: Present: soft, normal bowel sounds. Absent: distended, tenderness, guarding, rebound, rigid Extremities exam: Present: normal inspection, full ROM, normal capillary refill. Absent: tenderness, pedal edema, joint swelling, calf tenderness Back exam: Present: normal inspection Neurological exam: Present: alert, oriented X3, CN II-XII intact Psychiatric exam: Present: normal affect, normal mood Skin exam: Present: warm, dry, intact, normal color. Absent: rash Course Vital Signs 05/19/22 16:57 Temperature 98.8 F Pulse Rate 102 H Respiratory 20 Rate Blood Pressure 117/81 O2 Sat by Pulse 100 Oximetry - Reevaluation(s) Reevaluation #1: 05/19/22 20:41 Medical record is reviewed Symptoms are improved here in the emergency department Patient is informed of results and questions answered Patient in no distress Procedures - Smoking Cessation Time Spent Discussing Smoking Cessation w/Patient (Minutes): 3 Patient Acknowledges Need for Cessation: Yes Medical Decision Making - Medical Decision Making I suspect patient has a leg. With regard to treatment of this dental infection. I am going to order a dose of IV Unasyn. We'll order basic labs. Given the patient's well appearance and evidence of no systemic signs. Suspect we can discharge the patient. Likely leave the patient on Augmentin and have her follow-up with the dentist. She counseled on smoking cessation. Follow-up with your regular physician as soon as possible for reevaluation. Follow up with a dentist as soon as possible. Patient was told to return to the ER for any signs or symptoms worsen. Told to return immediately if any other problems arise. All questions answered. Treatment plan discussed. Patient in agreement Every effort has been made to ensure accuracy of this dictation. However, due to the limitations of electronic medical records and dictation devices, errors in charting still occur. B[employer] Dr. Alejo - Lab Data Result diagrams: 05/19/22 18:03 05/19/22 18:03 Lab Results 05/19/22 05/19/22 Range/Units 18:03 18:03 WBC 11.3 H (3.8-10.6) k/uL RBC 3.97 (3.80-5.40) m/uL Hgb 12.4 (11.4-16.0) gm/dL Hct 36.8 (34.0-46.0) % MCV 92.6 (80.0-100.0) fL MCH 31.2 (25.0-35.0) pg MCHC 33.7 (31.0-37.0) g/dL RDW 13.2 (11.5-15.5) % Plt Count 291 (150-450) k/uL MPV 9.8 Neutrophils % 74 % Lymphocytes % 17 % Monocytes % 7 % Eosinophils % 1 % Basophils % 0 % Neutrophils # 8.4 H (1.3-7.7) k/uL Lymphocytes # 1.9 (1.0-4.8) k/uL Monocytes # 0.7 (0-1.0) k/uL Eosinophils # 0.1 (0-0.7) k/uL Basophils # 0.0 (0-0.2) k/uL Sodium 138 (137-145) mmol/L Potassium 4.5 (3.5-5.1) mmol/L Chloride 104 (98-107) mmol/L Carbon Dioxide 28 (22-30) mmol/L Anion Gap 6 mmol/L BUN 11 (7-17) mg/dL Creatinine 0.39 L (0.52-1.04) mg/dL Est GFR (CKD-EPI)AfAm >90 (>60 ml/min/1.73 sqM) Est GFR (CKD-EPI)NonAf >90 (>60 ml/min/1.73 sqM) Glucose 76 (74-99) mg/dL Calcium 8.3 L (8.4-10.2) mg/dL Total Bilirubin 0.5 (0.2-1.3) mg/dL AST 25 (14-36) U/L ALT 15 (4-34) U/L Alkaline Phosphatase 75 (38-126) U/L Total Protein 6.5 (6.3-8.2) g/dL Albumin 4.0 (3.5-5.0) g/dL Disposition Clinical Impression: Dental infection Disposition: HOME SELF-CARE Condition: Stable Instructions (If sedation given, give patient instructions): Dental Abscess (ED), How to Stop Smoking (ED) Additional Instructions: Apply warm compresses for 10-15 minutes at a time 4 times daily. Take the Augme ntin as directed until it is gone. I'll put a dentist as soon as possible. Follow-up with your regular physician as directed. Return to the ER immediately if any symptoms worsen, new symptoms arise, or any other problems develop. Is patient prescribed a controlled substance at d/c from ED?: No Referrals: Hai Veronica Jr, DO [Primary Care Provider] - 05/21/22 Time of Disposition: 20:41
[2022-05-19 19:38] LABS: Basophils % (A) 0 %; Eosinophils # (A) 0.1 k/uL (0-0.7); Eosinophils % (A) 1 %; HCT 36.8 % (34.0-46.0); HGB 12.4 gm/dL (11.4-16.0); Lymphocytes # (A) 1.9 k/uL (1.0-4.8); Lymphocytes % (A) 17 %; MCH 31.2 pg (25.0-35.0); MCHC 33.7 g/dL (31.0-37.0); MCV 92.6 fL (80.0-100.0); Mean Platelet Volume 9.8; Monocytes # (A) 0.7 k/uL (0-1.0); Monocytes % (A) 7 %; Neutrophils # (A) 8.4 k/uL (1.3-7.7); Neutrophils % (A) 74 %; Platelet Count 291 k/uL (150-450); RBC 3.97 m/uL (3.80-5.40); RDW 13.2 % (11.5-15.5); WBC 11.3 k/uL (3.8-10.6)
[2022-05-19 20:01] LABS: ALT 15 U/L (4-34); AST 25 U/L (14-36); African American GFR (CKD) >90 (>60 ml/min/1.73 sqM); Alkaline Phosphatase 75 U/L (38-126); Anion Gap 6 mmol/L; Blood Urea Nitrogen 11 mg/dL (7-17); Calcium 8.3 mg/dL (8.4-10.2); Carbon Dioxide 28 mmol/L (22-30); Chloride 104 mmol/L (98-107); Glucose 76 mg/dL (74-99); Non-African American GFR(CKD) >90 (>60 ml/min/1.73 sqM); Potassium 4.5 mmol/L (3.5-5.1); Sodium 138 mmol/L (137-145); Total Bilirubin 0.5 mg/dL (0.2-1.3); Total Protein 6.5 g/dL (6.3-8.2)
[2022-05-19 21:03] VITALS: BP 110/81; PULSE 60; RESP 16
== END 2022-05-19 21:02 | disposition home or self-care (01) ==
LOC: EC 16:48
DX: K04.7 Periapical abscess without sinus (principal); M19.90 Unspecified osteoarthritis, unspecified site; F17.200 Nicotine dependence, unspecified, uncomplicated; Z88.1 Allergy status to other antibiotic agents; Z88.6 Allergy status to analgesic agent
CPT/HCPCS: 96368; 96361; 96365 ×2; 99283 ×2; 36415; 80053; 85025; 96366; 96375; J2270; J0295